=== PATIENT | male | born 1965 | race Caucasian/White ===

== ENCOUNTER 2017-08-21 10:29 | Emergency (ER) | payer BC, SELFPAY ==
[2017-08-21 10:46] VITALS: BP 163/110; PULSE 108; RESP 20; TEMP 39; O2SAT 98; BMI 37.3
[2017-08-21 10:54] LABS: UTC Influenza A Antigen Positive (Negative); UTC Influenza B Antigen Negative (Negative)
[2017-08-21 10:56] LABS: UTC Strep Screen (Rapid) Negative (Negative)
--- NOTE | 2017-08-21 10:59 | HMH.EDUTC ---
[facility] [place] Disposition Clinical Impression: Influenza A Disposition: Home, Self-Care Condition on Discharge: Good Instructions: DI for Influenza -- Adult Additional Instructions: * Start Tamiflu today if you are going to take it. Discussed risks and possible benefits. * Lots of rest * warm salt water gargles * warm fluids * sore throat lozenges * sleep elevated * humidifier/vaporizer * Increase fluids, water, gatorade, powerade, pedialyte if /toddler/child * Monitor Temp. Tylenol every 4 hours as needed no more then 5 times a day or 4000mg in 24 hours and/or ibuprofen every 6 hours as needed no more then 3200mg in 24 hours (as long as your primary care doctor has told you that it is ok to take both) for fever/aches/pain. ER if fever no less than 101 despite tylenol and Ibuprofen * OTC cold/flu/sinus medication is ok but pick one. Do not take multiple different ones as they have similar ingredients and you can overdose on cold medication. Be careful which ones you choose due to your high blood pressure. Coricidin HBP products are typically the safest in those with high blood pressure. * You (or your child) are contagious until no fever, aches, chills x 24 hours without medication for symptoms. * As you requested, I prescribed you cough syrup to help you sleep. Promethazine DM cough syrup will cause drowsiness. Use it only at night. No driving, operating machinery or caring for small children after taking it. This may or may not effect your blood pressure. BE SUrE to monitor (especially once fever gone or improved) and if remains elevated, stop medication and be sure to follow up. Follow up with primary care IMMEDIATELY for new or worsening symptoms, improvement followed by suddenly feeling worse OR no noticeable improvement over the next 48-72 hours. 911 for difficulty breathing Prescriptions: Oseltamivir Phosphate [Tamiflu 75mg Capsule] 75 mg PO BID #10 cap Promethazine/Dextromethorphan [Promethazine-Dm Syrup] 5 ml PO Q6H PRN #240 ml PRN Reason: Cough Time of Disposition: 11:06 Medical Decision Making Vital Signs: 08/21/17 10:46 08/21/17 11:03 Temperature 102.2 F H 102.2 F H Temperature Source Temporal Artery Scan Pulse Rate 108 H Pulse Rate [Right Brachial] 108 H Respiratory Rate 20 20 Blood Pressure 163/110 Blood Pressure [Right Arm] 163/110 Blood Pressure Mean [Right Arm] 127 Blood Pressure Source [Right Arm] Automatic Cuff Blood Pressure Position [Right Arm] Sitting 02 Sat by Pulse Oximetry 98 Oxygen Delivery Method Room Air - Lab Data Lab results reviewed: Yes: I reviewed the patient's lab results. Lab Results 08/21/17 10:53: Influenza Type A Ag Positive A, Influenza Type B Ag Negative, Strep Scn Rapid Clinic Negative Orders (Tests/Meds): ORDERS Category Date Time Status Strep Screen Confirmation Stat Micro 08/21/17 10:53 Received - Liban Inquiry Pt receiving controlled substance: No [facility] [place] HPI - General Stated complaint: COUGH SOA Mode of Arrival: Ambulatory Source of Information: Patient Limitations: No Limitations Description of Symptoms (Recalled from Triage Doc. by RN): c/o fever and cough HEENT Symptoms (Recalled from RN notes): No Resp Symptoms (Recalled from RN notes): Yes (cough) Skin Symptoms (Recalled from RN notes): No MS Symptoms (Recalled from RN notes): No Functional Status (Recalled from RN notes): n/a - History of Present Illness Provider Complaint: c/o dry nonprod cough not too bad x weeks. 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 Started to suddenly feel worse yesterday. More tired as the day progressed and didn't sleep at all last night due to cough. Reports SOA but then describes it more as when he can't stop coughing, not at rest or with activity. No wheezing. Nonsmoker. Robitussin helped take the edge off . Has not had flu vaccine. No known sick contact. 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 - Related D
[2017-08-21 11:03] VITALS: BP 163/110; PULSE 108; RESP 20; TEMP 39; O2SAT 98
--- NOTE | 2017-08-21 11:04 | ED_ITS ---
[facility] [place] Disposition Clinical Impression: Influenza A Disposition: Home, Self-Care Condition on Discharge: Good Instructions: DI for Influenza -- Adult Additional Instructions: * Start Tamiflu today if you are going to take it. Discussed risks and possible benefits. * Lots of rest * warm salt water gargles * warm fluids * sore throat lozenges * sleep elevated * humidifier/vaporizer * Increase fluids, water, gatorade, powerade, pedialyte if /toddler/child * Monitor Temp. Tylenol every 4 hours as needed no more then 5 times a day or 4000mg in 24 hours and/or ibuprofen every 6 hours as needed no more then 3200mg in 24 hours (as long as your primary care doctor has told you that it is ok to take both) for fever/aches/pain. ER if fever no less than 101 despite tylenol and Ibuprofen * OTC cold/flu/sinus medication is ok but pick one. Do not take multiple different ones as they have similar ingredients and you can overdose on cold medication. Be careful which ones you choose due to your high blood pressure. Coricidin HBP products are typically the safest in those with high blood pressure. * You (or your child) are contagious until no fever, aches, chills x 24 hours without medication for symptoms. * As you requested, I prescribed you cough syrup to help you sleep. Promethazine DM cough syrup will cause drowsiness. Use it only at night. No driving, operating machinery or caring for small children after taking it. This may or may not effect your blood pressure. BE SUrE to monitor (especially once fever gone or improved) and if remains elevated, stop medication and be sure to follow up. Follow up with primary care IMMEDIATELY for new or worsening symptoms, improvement followed by suddenly feeling worse OR no noticeable improvement over the next 48-72 hours. 911 for difficulty breathing Prescriptions: Oseltamivir Phosphate [Tamiflu 75mg Capsule] 75 mg PO BID #10 cap Promethazine/Dextromethorphan [Promethazine-Dm Syrup] 5 ml PO Q6H PRN #240 ml PRN Reason: Cough Time of Disposition: 11:06 Medical Decision Making Vital Signs: 08/21/17 10:46 08/21/17 11:03 Temperature 102.2 F H 102.2 F H Temperature Source Temporal Artery Scan Pulse Rate 108 H Pulse Rate [Right Brachial] 108 H Respiratory Rate 20 20 Blood Pressure 163/110 Blood Pressure [Right Arm] 163/110 Blood Pressure Mean [Right Arm] 127 Blood Pressure Source [Right Arm] Automatic Cuff Blood Pressure Position [Right Arm] Sitting 02 Sat by Pulse Oximetry 98 Oxygen Delivery Method Room Air - Lab Data Lab results reviewed: Yes: I reviewed the patient's lab results. Lab Results 08/21/17 10:53: Influenza Type A Ag Positive A, Influenza Type B Ag Negative, Strep Scn Rapid Clinic Negative Orders (Tests/Meds): ORDERS Category Date Time Status Strep Screen Confirmation Stat Micro 08/21/17 10:53 Received - Liban Inquiry Pt receiving controlled substance: No [facility] [place] HPI - General Stated complaint: COUGH SOA Mode of Arrival: Ambulatory Source of Information: Patient Limitations: No Limitations Description of Symptoms (Recalled from Triage Doc. by RN): c/o fever and cough HEENT Symptoms (Recalled from RN notes): No Resp Symptoms (Recalled from RN notes): Yes (cough) Skin Symptoms (Recalled from RN notes): No MS Symptoms (Recalled from RN notes): No Functional Status (Recalled from RN notes): n/a - History of Present Illness Pr
== END 2017-08-21 11:07 | disposition home or self-care (01) ==
PROVIDERS: Emergency Provider Nurse Practitioner Family; Family Provider Internal Medicine Adolescent Medicine
DX: J10.1 Influenza due to other identified influenza virus with other respiratory manifestations (principal); I10 Essential (primary) hypertension
CPT/HCPCS: 87804; 87880; 99202

== ENCOUNTER 2017-09-01 23:36 | Emergency (ER) | payer BC, SELFPAY ==
[2017-09-01 23:40] VITALS: BP 150/75; PULSE 97; RESP 20; TEMP 37.1; O2SAT 96; BMI 36.8
--- NOTE | 2017-09-02 | XR_ITS ---
XR chest 2V HISTORY: ITS.REASON: SOA, BACK PAIN ORDERING PHYSICIAN: Basil Booth MD PATIENT AGE: 52 years COMPARISON: None available FINDINGS: The cardiomediastinal silhouette and pulmonary vascularity are within normal limits. There is a rounded 2.6 cm opacity in the right lung base laterally. This could be related to an area of rounded consolidation, one cannot exclude the possibility of neoplasm. Suggest chest CT with contrast for further evaluation. No effusions or other significant anomalies.. No acute bony abnormalities. IMPRESSION: 2.6 cm rounded opacity right lung base laterally. Recommend chest CT for further evaluation. Differential diagnosis includes neoplasm versus rounded area of pneumonia.
[2017-09-02 00:08] VITALS: BP 106/59
--- NOTE | 2017-09-02 00:20 | PC.NURSE ---
PT TO XRAY AT THIS TIME
--- NOTE | 2017-09-02 00:24 | PC.NURSE ---
PT BACK FROM XRAY
[2017-09-02 00:26] LABS: Basophils # 0.1 K/mm3 (0-0.2); Basophils % 0.6 % (0.1-2.0); Eosinophils # 0.2 K/mm3 (0.0-0.4); Eosinophils % 2.4 % (0.1-12.0); Hematocrit 44.8 % (42.0-52.0); Hemoglobin 14.7 g/dL (14.1-18.0); Lymphocytes # 1.8 K/mm3 (0.7-4.5); Lymphocytes % 22.5 K/mm3 (10-50); Mean Corpuscular HGB Conc 32.8 g/dL (31.8-35.4); Mean Corpuscular Hemoglobin 28.4 pg (27.0-31.2); Mean Corpuscular Volume 86.7 fl (80-94); Monocytes # 0.4 K/mm3 (0.1-1.0); Monocytes % 4.7 % (1.7-9.3); Neutrophils # 5.5 K/mm3 (1.8-7.8); Neutrophils % 69.8 % (37.0-80.0); Platelet Count 146 K/mm3 (142-424); Red Blood Count 5.17 M/mm3 (4.60-6.20); Red Cell Distribution Width 13.2 % (11.5-17.5); White Blood Count 7.9 K/mm3 (4.8-10.8)
[2017-09-02 00:38] LABS: Lactic Acid 1.2 mmol/L (0.4-2.0)
[2017-09-02 00:48] LABS: Alanine Aminotransferase 39 U/L (12-78); Albumin Level 3.2 gm/dL (3.4-5.0); Albumin/Globulin Ratio 0.8 (1.1-1.8); Alkaline Phosphatase 90 U/L (46-116); Anion Gap 12.2 mEq/L (5-15); Aspartate Amino Transferase 24 U/L (15-37); Bilirubin,Total 0.6 mg/dL (0.2-1.0); Blood Urea Nitrogen 15 mg/dL (7-18); CKMB Relative Index 0.4 U/L (0-4.0); Calcium 8.4 mg/dL (8.5-10.1); Carbon Dioxide 29 mmol/L (21.0-32.0); Chloride 101 mmol/L (98-107); Creatine Kinase 118 U/L (39-308); Creatine Kinase MB 0.5 mg/ml (0.0-3.6); Creatinine Clearance Estimated 117 mL/min (0-300); Creatinine,Serum 1.27 mg/dL (0.70-1.30); Estimated Glomerular Filt Rate 59 ml/min (>60); GFR (African American) 72 ML/MIN (>60); Globulin 4.1 gm/dl (1.3-3.2); Glucose 128 mg/dL (74-106); Potassium 4.2 mmoL/L (3.5-5.1); Sodium 138 mmol/L (136-145); Total Protein,Serum 7.3 gm/dL (6.4-8.2); Troponin I < 0.02 ng/ml (0.00-0.06)
[2017-09-02 01:04] VITALS: PULSE 93; PULSE 96
--- NOTE | 2017-09-02 01:21 | HMH.EDGENADL ---
ED Disposition Clinical Impression: Pleurisy CAP (community acquired pneumonia) Qualifiers: Laterality: right Lung location: lower lobe of lung Qualified Code(s): J18.1 - Lobar pneumonia, unspecified organism Disposition: Home, Self-Care Condition on Discharge: Good Instructions: DI for Pleurisy Additional Instructions: use meds and see pcp for follow up Prescriptions: predniSONE [Prednisone 20mg Tab] 20 mg PO DAILY #10 tab - Critical Care Critical Care Time: No Attestation: On 09/01/17, the high probability of a clinically significant, sudden or life threatening deterioration of the following system(s) required my full and direct attention, intervention and personal management. The time I documented below is in addition to time spent performing reported procedures but includes the following listed in this critical care notation. Medical Decision Making - Medical Records Medical records reviewed: Yes: I reviewed the patient's medical records. Vital Signs: 09/01/17 23:40 09/02/17 00:08 09/02/17 01:04 Temperature 98.7 F Temperature Source Oral Pulse Rate 93 H Pulse Rate [Right Brachial] 97 H Respiratory Rate 20 Blood Pressure [Right Arm] 150/75 106/59 Blood Pressure Mean [Right Arm] 100 74 Blood Pressure Source [Right Arm] Automatic Cuff Automatic Cuff Blood Pressure Position [Right Arm] Sitting Supine 02 Sat by Pulse Oximetry 96 Oxygen Delivery Method Room Air - Lab Data Lab results reviewed: Yes: I reviewed the patient's lab results. Lab Results 09/02/17 00:15: WBC 7.9, RBC 5.17, Hgb 14.7, Hct 44.8, MCV 86.7, MCH 28.4, MCHC 32.8, RDW 13.2, Plt Count 146, MPV 9.0, Neut % (Auto) 69.8, Lymph % (Auto) 22.5, Walsh % (Auto) 4.7, Eos % (Auto) 2.4, Baso % (Auto) 0.6, Neut # (Auto) 5.5, Lymph # (Auto) 1.8, Walsh # (Auto) 0.4, Eos # (Auto) 0.2, Baso # (Auto) 0.1 09/02/17 00:15: Sodium 138, Potassium 4.2, Chloride 101, Carbon Dioxide 29, Anion Gap 12.2, BUN 15, Creatinine 1.27, Estimated Creat Clear 117, Estimated GFR 59, Est GFR ( Amer) 72, Glucose 128 H, Calcium 8.4 L, Total Bilirubin 0.6, AST 24, ALT 39, Alkaline Phosphatase 90, Total Creatine Kinase 118, CK-MB (CK-2) 0.5, CK-MB (CK-2) Rel Index 0.4, Troponin I < 0.02, Total Protein 7.3, Albumin 3.2 L, Globulin 4.1 H, Albumin/Globulin Ratio 0.8 L 09/02/17 00:15: Lactic Acid 1.2 Result diagrams: 09/02/17 00:15 09/02/17 00:15 Orders (Tests/Meds): ED MEDICATIONS Generic Name Dose Route Start Last Admin Trade Name Freq PRN Reason Stop Dose Admin Albuterol Sulfate 2 puffs 09/02/17 01:49 Proventil-Hfa 90mcg/Puff Inhaler 10/02/17 01:48 Q6HP PRN Shortness Of Breath Discontinued Medications Generic Name Dose Route Start Last Admin Trade Name Freq PRN Reason Stop Dose Admin Albuterol/Ipratropium 3 ml 09/02/17 00:49 09/02/17 01:01 Duoneb 3ml Neb IH 09/02/17 00:50 3 ml ONCE ONE Administration Methylprednisolone Sodium Succinate 125 mg 09/02/17 01:49 Solu-Medrol 125mg/2ml Vial IV 09/02/17 01:50 ONCE ONE Miscellaneous 1 unit 09/02/17 01:49 Aerochamber/Optihaler MC 09/02/17 01:50 ONCE ONE ORDERS Category Date Time Status XR chest 2V Stat Exams 09/02/17 00:00 Taken Blood Culture Stat Micro 09/02/17 00:15 Received ECG Request by /Ashely Stat Y 09/01/17 23:54 Ordered - Radiology Data #1 Image(s): Chest Image Reviewed: Yes I reviewed the patient's radiology image Preliminary Findings: Abnormal - ECG Data Tracing #1 I reviewed this ECG and interpreted as documented below: Arrhythmias present: sinus tach Ischemic changes: non-specific ST-T wave changes - Liban Inquiry Pt receiving controlled substance: No General Adult HPI - General Chief complaint: PAIN Stated complaint: SOA Pain in middle of back Time Seen by Provider: 09/02/17 01:21 Mode of Arrival: Family Vehicle Source of Information: Patient, Significant Other, Me
--- NOTE | 2017-09-02 01:26 | ED_ITS ---
ED Disposition Clinical Impression: Pleurisy CAP (community acquired pneumonia) Qualifiers: Laterality: right Lung location: lower lobe of lung Qualified Code(s): J18.1 - Lobar pneumonia, unspecified organism Disposition: Home, Self-Care Condition on Discharge: Good Instructions: DI for Pleurisy Additional Instructions: use meds and see pcp for follow up Prescriptions: predniSONE [Prednisone 20mg Tab] 20 mg PO DAILY #10 tab - Critical Care Critical Care Time: No Attestation: On 09/01/17, the high probability of a clinically significant, sudden or life threatening deterioration of the following system(s) required my full and direct attention, intervention and personal management. The time I documented below is in addition to time spent performing reported procedures but includes the following listed in this critical care notation. Medical Decision Making - Medical Records Medical records reviewed: Yes: I reviewed the patient's medical records. Vital Signs: 09/01/17 23:40 09/02/17 00:08 09/02/17 01:04 Temperature 98.7 F Temperature Source Oral Pulse Rate 93 H Pulse Rate [Right Brachial] 97 H Respiratory Rate 20 Blood Pressure [Right Arm] 150/75 106/59 Blood Pressure Mean [Right Arm] 100 74 Blood Pressure Source [Right Arm] Automatic Cuff Automatic Cuff Blood Pressure Position [Right Arm] Sitting Supine 02 Sat by Pulse Oximetry 96 Oxygen Delivery Method Room Air - Lab Data Lab results reviewed: Yes: I reviewed the patient's lab results. Lab Results 09/02/17 00:15: WBC 7.9, RBC 5.17, Hgb 14.7, Hct 44.8, MCV 86.7, MCH 28.4, MCHC 32.8, RDW 13.2, Plt Count 146, MPV 9.0, Neut % (Auto) 69.8, Lymph % (Auto) 22.5 , Josephine % (Auto) 4.7, Eos % (Auto) 2.4, Baso % (Auto) 0.6, Neut # (Auto) 5.5, Lymph # (Auto) 1.8, Josephine # (Auto) 0.4, Eos # (Auto) 0.2, Baso # (Auto) 0.1 09/02/17 00:15: Sodium 138, Potassium 4.2, Chloride 101, Carbon Dioxide 29, Anion Gap 12.2, BUN 15, Creatinine 1.27, Estimated Creat Clear 117, Estimated GFR 59, Est GFR ( Amer) 72, Glucose 128 H, Calcium 8.4 L, Total Bilirubin 0.6, AST 24, ALT 39, Alkaline Phosphatase 90, Total Creatine Kinase 118, CK-MB (CK-2) 0.5, CK-MB (CK-2) Rel Index 0.4, Troponin I < 0.02, Total Protein 7.3, Albumin 3.2 L, Globulin 4.1 H, Albumin/Globulin Ratio 0.8 L 09/02/17 00:15: Lactic Acid 1.2 Result diagrams: 09/02/17 00:15 09/02/17 00:15 Orders (Tests/Meds): ED MEDICATIONS Generic Name Dose Route Start Last Admin Trade Name Freq PRN Reason Stop Dose Admin Albuterol Sulfate 2 puffs 09/02/17 01:49 Proventil-Hfa 90mcg/Puff Inhaler 10/02/17 01:48 Q6HP PRN Shortness Of Breath Discontinued Medications Generic Name Dose Route Start Last Admin Trade Name Freq PRN Reason Stop Dose Admin Albuterol/Ipratropium 3 ml 09/02/17 00:49 09/02/17 01:01 Duoneb 3ml Neb IH 09/02/17 00:50 3 ml ONCE ONE Administration Methylprednisolone Sodium Succinate 125 mg 09/02/17 01:49 Solu-Medrol 125mg/2ml Vial IV 09/02/17 01:50 ONCE ONE Miscellaneous 1 unit 09/02/17 01:49 Aerochamber/Optihaler MC 09/02/17 01:50 ONCE ONE ORDERS Category Date Time Status XR chest 2V Stat Exams 09/02/17 00:00 Taken Blood Culture Stat Micro
[2017-09-02 02:13] VITALS: BP 157/59; PULSE 97; RESP 20; O2SAT 97
== END 2017-09-02 02:15 | disposition home or self-care (01) ==
PROVIDERS: Emergency Provider Emergency Medicine; Family Provider Internal Medicine Adolescent Medicine
DX: J18.1 Lobar pneumonia, unspecified organism (principal); R09.1 Pleurisy; E78.5 Hyperlipidemia, unspecified; I10 Essential (primary) hypertension; Z97.13 Presence of artificial right leg (complete) (partial)
CPT/HCPCS: 71046; 80053; 82550; 82553; 83605; 84484; 85025; 87040; 93005; 93041; 96374; 99284

== ENCOUNTER 2017-09-18 16:45 | Emergency (ER) | payer BC, SELFPAY ==
--- NOTE | 2017-09-18 17:23 | XR_ITS ---
XR chest 2V HISTORY: ITS.REASON: COUGH ORDERING PHYSICIAN: Kelly Velásquez PATIENT AGE: 52 years COMPARISON: None available FINDINGS: The cardiomediastinal silhouette and pulmonary vascularity are within normal limits. There is coarsening of bronchovascular markings. There remains an area of increased density in the right lung base laterally which may be somewhat less apparent. This however could be related to the projection and technique. CT suggested for further evaluation. Mild bronchial thickening. Degenerative changes are present in the thoracic spine. IMPRESSION: 1. Persistent opacity in right lung base laterally for which CT is suggested. Infiltrate or developing nodule is a consideration. 2. Bronchitis/bronchiolitis
[2017-09-18 17:25] VITALS: BP 134/75; PULSE 101; RESP 20; TEMP 36.3; O2SAT 96; BMI 37.3
--- NOTE | 2017-09-18 18:00 | HMH.EDUTC ---
[facility] [place] Disposition Clinical Impression: Lung infiltrate Disposition: Home, Self-Care Condition on Discharge: Good Instructions: Pneumonia-Adult, DI for Pneumonia -- Adult Additional Instructions: Take medication as prescribed Call Family doctor tomorrow for appointment Return if needed If you began to have trouble breathing or worsening of symptoms go straight to ER Prescriptions: Albuterol Sulfate [Albuterol HFA Inhaler] 2 puffs IH Q6HP PRN #1 inh PRN Reason: Shortness Of Breath Or Wheezing Azithromycin [Z-James 250mg Tab] 250 mg PO UD DOSE PK #6 tab Benzonatate [Tessalon Perle 100mg Cap] 100 mg PO TID PRN #30 cap PRN Reason: Cough predniSONE [Prednisone 20mg Tab] 20 mg PO BID #10 tab Referrals: Harvey Gannon MD [Primary Care Provider] - Time of Disposition: 18:43 Medical Decision Making - Medical Records Medical records reviewed: Yes: I reviewed the patient's medical records. Vital Signs: 09/18/17 17:25 Temperature 97.3 F L Temperature Source Temporal Artery Scan Pulse Rate [Left Brachial] 101 H Respiratory Rate 20 Blood Pressure [Left Arm] 134/75 Blood Pressure Mean [Left Arm] 94 Blood Pressure Source [Left Arm] Automatic Cuff Blood Pressure Position [Left Arm] Sitting 02 Sat by Pulse Oximetry 96 Oxygen Delivery Method Room Air - Lab Data Lab Results 09/18/17 17:23: Influenza Type A Ag Negative, Influenza Type B Ag Negative - Radiology Data #1 Image Reviewed: Yes I have reviewed radiologist's interpretation Persistent opacity in right lung base laterally, ?infiltrate, 2 Bronchitis/bronchiolitis - Liban Inquiry Pt receiving controlled substance: No Liban was queried for this patient: No [facility] [place] HPI - General Stated complaint: fever, soa, cough Mode of Arrival: Ambulatory Source of Information: Patient Limitations: No Limitations Description of Symptoms (Recalled from Triage Doc. by RN): FEVER, COUGH, CHEST CONGESTION HEENT Symptoms (Recalled from RN notes): No Resp Symptoms (Recalled from RN notes): Yes (COUGH, CHEST CONGESTION) Skin Symptoms (Recalled from RN notes): No MS Symptoms (Recalled from RN notes): No Functional Status (Recalled from RN notes): N/A - History of Present Illness Provider Complaint: Patient state that he recently had the flu and was recently seen and treated for lung infection States that on he began to have the cough and feeling like he was getting sick again State that he was worried that he may have the flu again so he came in to get checked out - Related Data Home Medications Medication Instructions Recorded Confirmed Benzonatate [Tessalon Perle 100mg 100 mg PO TID 09/01/17 09/01/17 Cap] Doxycycline Monohydrate [Monodox] 100 mg PO BID 09/01/17 09/01/17 Metoprolol Succinate [Toprol XL 25 mg PO DAILY 09/01/17 09/01/17 25mg tablet] Pravastatin Sodium [Pravachol] 40 mg PO HS 09/01/17 09/01/17 Previous Rx's Medication Instructions Recorded Promethazine/Dextromethorphan 5 ml PO Q6H PRN #240 ml 08/21/17 [Promethazine-Dm Syrup] predniSONE [Prednisone 20mg 20 mg PO DAILY #10 tab 09/02/17 Tab] Albuterol Sulfate [Albuterol HFA 2 puffs IH Q6HP PRN #1 inh 09/18/17 Inhaler] Azithromycin [Z-James 250mg Tab] 250 mg PO UD DOSE PK #6 tab 09/18/17 Benzonatate [Tessalon Perle 100mg 100 mg PO TID PRN #30 cap 09/18/17 Cap] predniSONE [Prednisone 20mg 20 mg PO BID #10 tab 09/18/17 Tab] Allergies Allergy/AdvReac Type Severity Reaction Status Date / Time No Known Allergies Allergy Verified 08/21/17 10:56 - Worker's Comp Is this a Worker's Comp case?: No [facility] History I have reviewed the patient's past medical history: Yes Medical History: Reports:: Hyperlipidemia, Hypertension Denies:: Cancer, Coronary Artery Disease, Diabetes Mellitus Type 1, Diabetes Mellitus Type 2, MRSA Laterality Cases: Left: Other, Right: Total Knee Replacement Other Surgeries: Yes: Other (wisdom teeth extracton) A
[2017-09-18 18:06] LABS: UTC Influenza A Antigen Negative (Negative); UTC Influenza B Antigen Negative (Negative)
--- NOTE | 2017-09-18 18:14 | ED_ITS ---
[facility] – [place] Disposition Clinical Impression: Lung infiltrate Disposition: Home, Self-Care Condition on Discharge: Good Instructions: Pneumonia-Adult, DI for Pneumonia -- Adult Additional Instructions: Take medication as prescribed Call Family doctor tomorrow for appointment Return if needed If you began to have trouble breathing or worsening of symptoms go straight to ER Prescriptions: Albuterol Sulfate [Albuterol HFA Inhaler] 2 puffs IH Q6HP PRN #1 inh PRN Reason: Shortness Of Breath Or Wheezing Azithromycin [Z-James 250mg Tab] 250 mg PO UD DOSE PK #6 tab Benzonatate [Tessalon Perle 100mg Cap] 100 mg PO TID PRN #30 cap PRN Reason: Cough predniSONE [Prednisone 20mg Tab] 20 mg PO BID #10 tab Referrals: Harvey Gannon MD [Primary Care Provider] - Time of Disposition: 18:43 Medical Decision Making - Medical Records Medical records reviewed: Yes: I reviewed the patient's medical records. Vital Signs: 09/18/17 17:25 Temperature 97.3 F L Temperature Source Temporal Artery Scan Pulse Rate [Left Brachial] 101 H Respiratory Rate 20 Blood Pressure [Left Arm] 134/75 Blood Pressure Mean [Left Arm] 94 Blood Pressure Source [Left Arm] Automatic Cuff Blood Pressure Position [Left Arm] Sitting 02 Sat by Pulse Oximetry 96 Oxygen Delivery Method Room Air - Lab Data Lab Results 09/18/17 17:23: Influenza Type A Ag Negative, Influenza Type B Ag Negative - Radiology Data #1 Image Reviewed: Yes I have reviewed radiologist's interpretation Persistent opacity in right lung base laterally, ?infiltrate, 2 Bronchitis/ bronchiolitis - Liban Inquiry Pt receiving controlled substance: No Liban was queried for this patient: No [facility] [place] HPI - General Stated complaint: fever, soa, cough Mode of Arrival: Ambulatory Source of Information: Patient Limitations: No Limitations Description of Symptoms (Recalled from Triage Doc. by RN): FEVER, COUGH, CHEST CONGESTION HEENT Symptoms (Recalled from RN notes): No Resp Symptoms (Recalled from RN notes): Yes (COUGH, CHEST CONGESTION) Skin Symptoms (Recalled from RN notes): No MS Symptoms (Recalled from RN notes): No Functional Status (Recalled from RN notes): N/A - History of Present Illness Provider Complaint: Patient state that he recently had the flu and was recently seen and treated for lung infection States that on he began to have the cough and feeling like he was getting sick again State that he was worried that he may have the flu again so he came in to get checked out - Related Data Home Medications Medication Instructions Recorded Confirmed Benzonatate [Tessalon Perle 100mg 100 mg PO TID 09/01/17 09/01/17 Cap] Doxycycline Monohydrate [Monodox] 100 mg PO BID 09/01/17 09/01/17 Metoprolol Succinate [Toprol XL 25 mg PO DAILY 09/01/17 09/01/17 25mg tablet] Pravastatin Sodium [Pravachol] 40 mg PO HS 09/01/17 09/01/17 Previous Rx's Medication Instructions Recorded Promethazine/Dextromethorphan 5 ml PO Q6H PRN #240 ml 08/21/17 [Promethazine-Dm Syrup] predniSONE [Prednisone 20mg 20 mg PO DAILY #10 tab 09/02/17 Tab] Albuterol Sulfate [Albuterol HFA 2 puffs IH Q6HP PRN #1 inh 09/18/17 Inhaler] Azithromycin [Z-James 250mg Tab] 250 mg PO UD DOSE PK #6 tab 09/18/17 Benzonatate [Tessalon Perle 100mg 100 mg
[2017-09-18 18:54] VITALS: BP 134/75; PULSE 101; RESP 20; TEMP 36.3; O2SAT 96
== END 2017-09-18 18:55 | disposition home or self-care (01) ==
PROVIDERS: Emergency Provider Nurse Practitioner; Family Provider Internal Medicine Adolescent Medicine; PCP Internal Medicine Adolescent Medicine
DX: J18.9 Pneumonia, unspecified organism (principal); E78.5 Hyperlipidemia, unspecified; I10 Essential (primary) hypertension
CPT/HCPCS: 71046; 87804; 99202

== ENCOUNTER → 2017-09-28 08:39 | Outpatient (CLI) | payer BC, SELFPAY ==
--- NOTE | 2017-09-28 08:51 | CT_ITS ---
CT chest w con HISTORY: Shortness of air, follow-up abnormal chest x-ray. Right lower lobe nodule, solitary pulmonary nodule. ITS.REASON: PULMONARY NODULE ORDERING PHYSICIAN: Harvey Gannon MD PATIENT AGE: 52 years TECHNIQUE: Axial images obtained following the administration of 75 mL of Isovue 370 . Sagittal, and coronal reformatted images are also generated and reviewed. COMPARISON: Radiograph of 09/18/2017 FINDINGS: There is a moderate sized pulmonary embolus within the distal aspect of the left main pulmonary artery extending into the proximal aspect of the upper and lower pulmonary artery branches. Smaller pulmonary emboli are present at the distal right main pulmonary artery and extending into the proximal portion of the descending branch of the right pulmonary artery. No evidence of aortic aneurysm or dissection. No mediastinal or hilar adenopathy or mass. Normal heart size. There is a peripheral nodular opacity in the right lower lobe measuring 2 cm corresponding to the radiographic abnormality. There is some decreased attenuation within the central aspect of this nodule. The nodule is well-circumscribed with some minimal irregularity of the peripheral aspect of the nodule. There is a 3.6 x 1.9 cm opacity in the left lung base also containing some low-density changes centrally somewhat similar to the nodule in the right lower lobe. No effusions. Patchy density is present in the left upper lobe anteriorly and laterally consistent with an area of infiltrate. Nodular opacity is present in the posterior aspect of the left upper lobe and 9 mm. With a satellite nodule adjacent to this laterally at 5 mm. No effusions. Upper abdominal images are unremarkable. No acute bony anomalies. IMPRESSION: 1. Bilateral pulmonary emboli described above. 2. Radiographic abnormality of the right lower lobe corresponds to a 2 cm nodule in the right lower lobe. There is an additional oval 3.6 x 1.9 cm nodule/mass in the left lung base. Both of these nodular areas contain decreased attenuation centrally having a somewhat bubbly consolidation which could be due to pulmonary infarction from the pulmonary emboli. Differential diagnosis would include septic pulmonary emboli or cavitating neoplasm. Recommend follow-up to confirm resolution. 3. 9 and 5 mm nodular opacity left upper lobe nonspecific. Long-term follow-up recommended to confirm stability.
--- NOTE | 2017-09-28 09:17 | HMH.ITSHM ---
PRAVASTATIN,METOPROLOL
--- NOTE | 2017-09-28 12:28 | NVE_ITS ---
Venous Exam Indications: 729.5 Pain in limb. 782.3 Edema. IMPRESSIONS Moderate, acute deep vein thrombosis involving the right femoral vein and right popliteal vein History: Right lower extremity pain. Edema of the right leg. PMH: Pulmonary embolus. Patient was diagnosed with PE this morning 09/28/17. Edema noted in right lower extremity x several weeks per patient. Risk factors: Hypertension. Right lower extremity venous duplex evaluation. Doppler flow study including spectral analysis, color and shetty scale imaging. Location: Vascular laboratory. Patient status: Outpatient. CRITICAL FINDINGS - Reported to: NIC Bocanegra - Read back and verified. - 09/28/17 - 15:55 - RLE DVT in SFV, POPV Tables: Venous flow and imaging: + + + + Location Overall Flow properties + + + + Right common femoral Patent Normal phasicity; spontaneous; normal augmentation; compressible + + + + Right saphenofemoral Totally occluded Noncompressible junction + + + + Right profunda femoral Totally occluded Noncompressible + + + + Right femoral Totally occluded Noncompressible + + + + Right greater saphenous Patent Normal phasicity; spontaneous; normal augmentation; compressible + + + + Right popliteal Totally occluded Noncompressible + + + + Right posterior tibial Patent Compressible + + + + Right peroneal Patent Compressible + + + + Right gastrocnemius Patent Compressible + + + + Right soleal Patent Compressible + + + + (Report amended ) Electronically signed by: Walter Pires [id number]
[2017-09-28 15:40] LABS: Basophils % 0.5 % (0.1-2.0); Eosinophils # 0.2 K/mm3 (0.0-0.4); Eosinophils % 3.5 % (0.1-12.0); Hematocrit 46.3 % (42.0-52.0); Hemoglobin 15.1 g/dL (14.1-18.0); Lymphocytes # 2.3 K/mm3 (0.7-4.5); Lymphocytes % 36.5 K/mm3 (10-50); Mean Corpuscular HGB Conc 32.6 g/dL (31.8-35.4); Mean Corpuscular Hemoglobin 28.1 pg (27.0-31.2); Mean Corpuscular Volume 86.4 fl (80-94); Mean Platelet Volume 8.2 fl (7.4-10.4); Monocytes # 0.3 K/mm3 (0.1-1.0); Monocytes % 5.3 % (1.7-9.3); Neutrophils # 3.4 K/mm3 (1.8-7.8); Neutrophils % 54.2 % (37.0-80.0); Platelet Count 178 K/mm3 (142-424); Red Blood Count 5.36 M/mm3 (4.60-6.20); Red Cell Distribution Width 13.6 % (11.5-17.5); White Blood Count 6.2 K/mm3 (4.8-10.8)
[2017-09-28 15:45] LABS: Activated Partial Thrombo Time 24.7 seconds (23.6-34.0); INR 0.93 (0.9-1.1)
[2017-09-28 16:16] LABS: D-Dimer 3440 (0-400)
[2017-09-28 17:11] LABS: Alanine Aminotransferase 33 U/L (12-78); Albumin Level 3.3 gm/dL (3.4-5.0); Albumin/Globulin Ratio 0.9 (1.1-1.8); Alkaline Phosphatase 84 U/L (46-116); Anion Gap 11.2 mEq/L (5-15); Aspartate Amino Transferase 13 U/L (15-37); Bilirubin,Total 0.2 mg/dL (0.2-1.0); Blood Urea Nitrogen 16 mg/dL (7-18); Calcium 8.5 mg/dL (8.5-10.1); Carbon Dioxide 28 mmol/L (21.0-32.0); Chloride 104 mmol/L (98-107); Creatinine,Serum 1.14 mg/dL (0.70-1.30); Estimated Glomerular Filt Rate 67 ml/min (>60); GFR (African American) 81 ML/MIN (>60); Globulin 3.5 gm/dl (1.3-3.2); Glucose 79 mg/dL (74-106); Potassium 4.2 mmoL/L (3.5-5.1); Sodium 139 mmol/L (136-145); Thyroid Stimulating Hormone 1.64 uIU/ml (0.358-3.740); Total Protein,Serum 6.8 gm/dL (6.4-8.2)
[2017-10-01 18:00] LABS: Anti-Thrombin III Antigen 85 % (72-124); Protein S Antigen, Total 98 % (60-150); Protein S, Free 131 % (57-157)
[2017-10-04 06:28] LABS: Protein C Antigen 105 % (60-150)
== END ==
PROVIDERS: Nurse Practitioner Family; Family Provider Internal Medicine Adolescent Medicine; PCP Internal Medicine Adolescent Medicine; Visit Provider Internal Medicine Adolescent Medicine
DX: R91.1 Solitary pulmonary nodule (principal); I26.99 Other pulmonary embolism without acute cor pulmonale; R91.8 Other nonspecific abnormal finding of lung field; R60.0 Localized edema
CPT/HCPCS: 36415; 71260; 80053; 81241; 84443; 85025; 85301; 85302; 85305; 85378; 85610; 85730; 93971; Q9967

== ENCOUNTER → 2017-09-30 09:32 | Outpatient (POV) | payer BC, SELFPAY | PROVIDERS: Visit Provider Thoracic Surgery (Cardiothoracic Vascular Surgery) | DX: Z00.00 Encounter for general adult medical examination without abnormal findings (principal) ==

== ENCOUNTER → 2018-01-05 09:14 | Outpatient (CLI) | payer BC, SELFPAY ==
--- NOTE | 2018-01-05 09:41 | CT_ITS ---
CT chest wo/w con HISTORY: Follow-up lung nodule/pulmonary emboli ITS.REASON: LUNG NODULE ORDERING PHYSICIAN: Davidson Paez MD PATIENT AGE: 52 years COMPARISON: 09/28/2017 Technique: Axial images obtained without and with contrast. 75 mL Isovue-370 utilized.. Sagittal and coronal reformatted images are also generated and reviewed. All CT scans at the facility use one or more dose reduction, viz: automated exposure control; ma/kV adjustment per patient size (including targeted exams where dose is matched to indication; i.e. head); or iterative reconstruction technique. FINDINGS: The previously noted extensive pulmonary emboli has improved. The thrombus within the bifurcation of the left main pulmonary artery has improved with only minimal residual noted. No mediastinal or hilar mass or adenopathy is evident. The unenhanced images demonstrates coronary artery calcification. There are calcified hilar and mediastinal lymph nodes. No enhancing lesions are evident. The previously noted peripheral parenchymal opacity in the right middle lobe has shown improvement now only represented by a bandlike area of increased density. The oblong parenchymal opacity in the left lung base posteriorly has also decreased in size with some minimal residual density in this area measuring approximately 20 x 8 mm compared to 36 x 18 mm. The infiltrate in the left upper lobe has improved. Subpleural parenchymal opacity in the left upper lobe posteriorly has decreased in prominence. No new nodules or infiltrates are evident. No acute bony anomalies. Upper abdominal images are unremarkable. IMPRESSION: 1. Interval decrease in thrombus burden of the pulmonary emboli with only minimal residual filling defect in the application of the left main pulmonary artery. 2. Previously described bilateral parenchymal opacities have also decreased in prominence and either representing pulmonary infarction or areas of pneumonia which have improved. There remains some parenchymal opacity in left lung base posteriorly. Consider 6 month follow-up to confirm further resolution for this 2 cm opacity
--- NOTE | 2018-01-05 10:12 | HMH.ITSHM ---
PRAVASTATIN,METOPROLOL
== END ==
PROVIDERS: Family Provider Internal Medicine Adolescent Medicine; PCP Internal Medicine Adolescent Medicine; Visit Provider Thoracic Surgery (Cardiothoracic Vascular Surgery)
DX: R91.1 Solitary pulmonary nodule (principal)
CPT/HCPCS: 71270; Q9967

== ENCOUNTER → 2019-05-30 07:07 | Outpatient (CLI) | payer BC, SELFPAY ==
[2019-05-30 13:48] LABS: Alanine Aminotransferase 24 U/L (12-78); Albumin Level 3.5 gm/dL (3.4-5.0); Albumin/Globulin Ratio 1.1 (1.1-1.8); Alkaline Phosphatase 67 U/L (46-116); Aspartate Amino Transferase 13 U/L (15-37); Bilirubin,Total 0.3 mg/dL (0.2-1.0); Blood Urea Nitrogen 15 mg/dL (7-18); Calcium 8.8 mg/dL (8.5-10.1); Carbon Dioxide 25 mmol/L (21.0-32.0); Chol/HDL Ratio 4.4 (1-3.5); Cholesterol 179 mg/dL (140-200); Creatinine,Serum 1.19 mg/dL (0.70-1.30); Estimated Glomerular Filt Rate 63 ml/min (>60); GFR (African American) 77 ML/MIN (>60); Globulin 3.1 gm/dl (1.3-3.2); Glucose 95 mg/dL (74-106); HDL Cholesterol 41 mg/dL (27-67); LDL Cholesterol 105 mg/dL (0-130); Total Protein,Serum 6.6 gm/dL (6.4-8.2); Triglycerides 163 mg/dL (30-200); VLDL Cholesterol 33 mg/dL (0-40)
[2019-05-30 14:30] LABS: Anion Gap 12.2 mEq/L (5-15); Chloride 105 mmol/L (98-107); Potassium 4.2 mmoL/L (3.5-5.1); Sodium 138 mmol/L (136-145)
== END ==
PROVIDERS: PCP Internal Medicine Adolescent Medicine; Visit Provider Internal Medicine Adolescent Medicine
DX: E78.5 Hyperlipidemia, unspecified (principal); I10 Essential (primary) hypertension
CPT/HCPCS: 36415; 80053; 80061

== ENCOUNTER 2020-05-03 11:41 | Emergency (ER) | payer BC, SELFPAY ==
[2020-05-03 12:01] VITALS: BP 141/84; PULSE 89; RESP 21; TEMP 37.2; O2SAT 98; BMI 37.3
[2020-05-03 12:16] VITALS: BP 141/84; PULSE 89; RESP 21; TEMP 37.2; O2SAT 98
--- NOTE | 2020-05-03 12:18 | HMH.EDUTC ---
[facility] [place] Impression: Sting, wasp Qualifiers: Encounter type: initial encounter Injury intent: accidental or unintentional Qualified Code(s): T63.461A - Toxic effect of venom of wasps, accidental (unintentional), initial encounter Disposition: Home, Self-Care Condition on Discharge: Good Instructions: Insect Bites and Stings Additional Instructions: Try to avoid contact with the offending substance. Don't start the oral steroids until tomorrow. Follow up with your regular doctor. GO TO THE ER FOR ANY WORSENING SYMPTOMS OR CONCERNS Prescriptions: methylPREDNISolone [Medrol] 4 mg PO DIRECTED 6 Days #21 tab.ds.pk Transmission Status: Received by [facility] Referrals: Harvey Gannon MD [Primary Care Provider] - Time of Disposition: 12:34 Medical Decision Making - Medical Records Medical records reviewed: No: I reviewed the patient's medical records. - Liban Inquiry Pt receiving controlled substance: No Vital Signs: 05/03/20 12:01 05/03/20 12:16 Temperature 99.0 F 99.0 F Temperature Source Oral Pulse Rate 89 Pulse Rate [Right Brachial] 89 Respiratory Rate 21 21 Blood Pressure 141/84 H Blood Pressure [Right Arm] 141/84 H Blood Pressure Mean [Right Arm] 103 Blood Pressure Source [Right Arm] Automatic Cuff Blood Pressure Position [Right Arm] Sitting 02 Sat by Pulse Oximetry 98 Oxygen Delivery Method Room Air Orders (Tests/Meds): ED MEDICATIONS Discontinued Medications Generic Name Dose Route Start Last Admin Trade Name Freq PRN Reason Stop Dose Admin Methylprednisolone Sodium Succinate 125 mg 05/03/20 12:09 05/03/20 12:13 Solu-Medrol 125mg/2ml Vial IM 05/03/20 12:10 125 mg ONCE ONE Administration [facility] [place] - General Stated complaint: bee sting Time Seen by Provider: 05/03/20 12:05 Mode of Arrival: Ambulatory Source of Information: Patient Limitations: No Limitations Description of Symptoms (Recalled from Triage Doc. 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 SWELLING NOTED TO AREAS. DENIES ANY DIFFICULTY BREATHING HEENT Symptoms (Recalled from RN notes): No Resp Symptoms (Recalled from RN notes): No Skin Symptoms (Recalled from RN notes): Yes MS Symptoms (Recalled from RN notes): No Functional Status (Recalled from RN notes): WNL - History of Present Illness Provider Complaint: He states that he was stung by a wasp on his face and the back of his neck. This happened right before he came in today. He came in because in the past he has had facial swelling after bee stings. - Related Data Home Medications Medication Instructions Recorded Confirmed Metoprolol Succinate [Toprol XL 25 mg PO DAILY 09/01/17 05/03/20 25mg tablet] Pravastatin Sodium [Pravachol] 40 mg PO HS 09/01/17 05/03/20 Previous Rx's Medication Instructions Recorded methylPREDNISolone [Medrol] 4 mg PO DIRECTED 6 Days #21 05/03/20 tab.ds.pk Allergies Allergy/AdvReac Type Severity Reaction Status Date / Time No Known Allergies Allergy Verified 08/21/17 10:56 - Worker's Comp Is this a Worker's Comp case?: No [facility] History - Hepatitis A Screen Drug use history?: No High risk sexual behaviors?: No History of sexually transmitted infection?: No Currently employed?: No Childcare worker?: No Do you have indoor plumbing?: Yes Do you have electricity?: Yes Attestation statement:: This patient has been screened for Hepatitis A risk factors. I have reviewed the patient's past medical history: Yes Medical History: Reports:: Hyperlipidemia, Hypertension Denies:: Cancer, Coronary Artery Disease, Diabetes Mellitus Type 1, Diabetes Mellitus Type 2, MRSA Laterality Cases: Left: Other, Bilateral: Arthroscopy Knee Other Surgeries: Yes: Other (wisdom teeth extracton) Amputation: No Fractures: No - Social History Smoking Status: Never smoker Alcoh
== END 2020-05-03 12:30 | disposition home or self-care (01) ==
PROVIDERS: Emergency Provider Nurse Practitioner Family; PCP Internal Medicine Adolescent Medicine
DX: T63.461A Toxic effect of venom of wasps, accidental (unintentional), initial encounter (principal); I10 Essential (primary) hypertension; E78.5 Hyperlipidemia, unspecified; Z79.899 Other long term (current) drug therapy
CPT/HCPCS: 96372; 99201

== ENCOUNTER → 2020-11-17 07:11 | Outpatient (CLI) | payer BC, SELFPAY ==
[2020-11-17 14:03] LABS: Chloride 108 mmol/L (98-107); Potassium 4.7 mmoL/L (3.5-5.1); Sodium 137 mmol/L (136-145)
[2020-11-17 14:05] LABS: Blood Urea Nitrogen 16 mg/dl (9-20); Estimated Glomerular Filt Rate 63 ml/min (>60); GFR (African American) 76 ML/MIN (>60)
[2020-11-17 14:06] LABS: Alanine Aminotransferase 24 U/L (12-78); Albumin Level 3.9 g/dl (3.5-5.0); Albumin/Globulin Ratio 1.4 (1.1-1.8); Alkaline Phosphatase 66 U/L (38-126); Anion Gap 9.7 mEq/L (5-15); Aspartate Amino Transferase 25 U/L (17-59); Bilirubin,Total 0.4 mg/dl (0.2-1.3); Calcium 9.1 mg/dl (8.4-10.2); Carbon Dioxide 24 mmol/L (22.0-30.0); Chol/HDL Ratio 4.3 (1-3.5); Cholesterol 177 mg/dl (140-200); Globulin 2.7 g/dL (1.3-3.2); Glucose 102 mg/dl (74-100); HDL Cholesterol 41 mg/dl (40-60); Total Protein,Serum 6.6 g/dl (6.3-8.2); Triglycerides 162 mg/dl (30-150); VLDL Cholesterol 32 mg/dL (0-40)
[2020-11-17 14:17] LABS: Direct LDL Cholesterol 109.36 mg/dL (100-129)
== END ==
PROVIDERS: Visit Provider Nurse Practitioner Family
DX: I10 Essential (primary) hypertension (principal); E78.5 Hyperlipidemia, unspecified
CPT/HCPCS: 36415; 80053; 80061

== ENCOUNTER → 2021-06-04 18:54 | Outpatient (CLI) | payer BC, SELFPAY ==
[2021-06-04 19:46] LABS: Basophils # 0.1 K/mm3 (0-0.2); Basophils % 1.1 % (0.1-2.0); Eosinophils # 0.1 K/mm3 (0.0-0.4); Eosinophils % 1.6 % (0.1-12.0); Hematocrit 52.4 % (42.0-52.0); Hemoglobin 16.7 g/dL (14.1-18.0); Lymphocytes # 1.8 K/mm3 (0.7-4.5); Lymphocytes % 34.3 % (10-50); Mean Corpuscular Hemoglobin 30.4 pg (27.0-31.2); Mean Corpuscular Volume 95.1 fl (80-94); Mean Platelet Volume 10.3 fl (7.4-10.4); Monocytes # 0.3 K/mm3 (0.1-1.0); Monocytes % 5.9 % (1.7-9.3); Neutrophils # 2.9 K/mm3 (1.8-7.8); Neutrophils % 57.1 % (37.0-80.0); Platelet Count 145 K/mm3 (142-424); Red Cell Distribution Width 13.8 % (11.5-17.5); White Blood Count 5.1 K/mm3 (4.8-10.8)
[2021-06-04 19:56] LABS: Chloride 103 mmol/L (98-107); Sodium 139 mmol/L (136-145)
[2021-06-04 19:59] LABS: Alanine Aminotransferase 23 U/L (12-78); Albumin Level 4.1 g/dl (3.5-5.0); Albumin/Globulin Ratio 1.4 (1.1-1.8); Alkaline Phosphatase 74 U/L (38-126); Aspartate Amino Transferase 26 U/L (17-59); Bilirubin,Total 0.5 mg/dl (0.2-1.3); Blood Urea Nitrogen 17 mg/dl (9-20); Carbon Dioxide 30 mmol/L (22.0-30.0); Cholesterol 198 mg/dl (140-200); Estimated Glomerular Filt Rate 62 ml/min (>60); GFR (African American) 76 ML/MIN (>60); Total Protein,Serum 7.1 g/dl (6.3-8.2); Triglycerides 108 mg/dl (30-150); VLDL Cholesterol 22 mg/dL (0-40)
[2021-06-04 20:00] LABS: Calcium 9.2 mg/dl (8.4-10.2); Chol/HDL Ratio 3.7 (1-3.5); Glucose 94 mg/dl (74-100); HDL Cholesterol 54 mg/dl (40-60)
[2021-06-04 20:11] LABS: Direct LDL Cholesterol 125.26 mg/dL (100-129)
[2021-06-04 20:30] LABS: Thyroid Stimulating Hormone 1.85 uIU/mL (0.465-4.68)
[2021-06-04 21:26] LABS: Hemoglobin A1C 5.4 % (4.0-6.0)
== END ==
PROVIDERS: Visit Provider Internal Medicine Adolescent Medicine
DX: I10 Essential (primary) hypertension (principal); E78.5 Hyperlipidemia, unspecified; E66.9 Obesity, unspecified; Z68.30 Body mass index [BMI] 30.0-30.9, adult
CPT/HCPCS: 80053; 80061; 83036; 84443; 85025

== ENCOUNTER 2021-12-02 18:06 | Emergency (ER) | payer BC, SELFPAY ==
[2021-12-02 18:48] VITALS: BP 158/95; PULSE 97; RESP 18; TEMP 37.5; O2SAT 100; BMI 39.3
--- NOTE | 2021-12-02 19:07 | HMH.EDUTC ---
[facility] [place] Disposition Clinical Impression: Sinusitis Qualifiers: Sinusitis location: unspecified location Chronicity: acute Recurrence: non-recurrent Qualified Code(s): J01.90 - Acute sinusitis, unspecified Acute bronchitis Qualifiers: Bronchitis organism: unspecified organism Qualified Code(s): J20.9 - Acute bronchitis, unspecified Disposition: Home, Self-Care Condition on Discharge: Good Instructions: Sinusitis, DI for Sinusitis Additional Instructions: Drink plenty of fluids. Take tylenol or ibuprofen for pain or fever. Take the medications as directed. Follow up with your regular doctor. GO TO THE ER FOR ANY WORSENING SYMPTOMS Don't start the oral steroids until tomorrow, since you had the shot here today. The cough medication (promethazine dm) will make you drowsy, so don't drive or operate heavy machinery after taking it. Prescriptions: Amoxicillin/Potassium Clav [Amox-Clav 875-125 mg Tablet] 1 tab PO BID #20 tab Transmission Status: Received by [facility] Benzonatate [Benzonatate 100mg cap] 100 mg PO TIDP PRN #30 cap PRN Reason: Cough Transmission Status: Received by [facility] methylPREDNISolone [Medrol] 4 mg PO DIRECTED 6 Days #21 packet Transmission Status: Received by [facility] Referrals: Harvey Gannon MD [Primary Care Provider] - Time of Disposition: 20:13 Medical Decision Making - Medical Records Medical records reviewed: No: I reviewed the patient's medical records. - Liban Inquiry Pt receiving controlled substance: No Vital Signs: 12/02/21 18:48 12/02/21 20:38 Temperature 99.5 F 99.5 F Temperature Source Oral Pulse Rate 97 H Pulse Rate [Left] 97 H Respiratory Rate 18 18 Blood Pressure 158/95 H Blood Pressure [Right Arm] 158/95 H Blood Pressure Mean [Right Arm] 116 02 Sat by Pulse Oximetry 100 - Lab Data Lab results reviewed: Yes: I reviewed the patient's lab results. Lab Results 12/02/21 19:10: Influenza Type A Ag Negative, Influenza Type B Ag Negative 12/02/21 19:12: Group A Strep Rapid Negative Orders (Tests/Meds): ED MEDICATIONS Discontinued Medications Generic Name Dose Route Start Last Admin Trade Name Freq PRN Reason Stop Dose Admin Ceftriaxone Sodium 1 gm 12/02/21 20:11 12/02/21 20:33 Ceftriaxone 1gm Vial IM 12/02/21 20:12 1 gm ONCE ONE Administration Lidocaine HCl 0 ml 12/02/21 20:11 12/02/21 20:33 Lidocaine 1% 5ml Pf Vial IM 12/02/21 20:12 2 ml ONCE ONE Administration Methylprednisolone Sodium Succinate 125 mg 12/02/21 20:11 12/02/21 20:32 Methylprednisolone Sod Succ 125mg Vial IM 12/02/21 20:12 125 mg ONCE ONE Administration - Radiology Data #1 Image(s): Chest Image Reviewed: Yes I reviewed the patient's radiology image, Yes I have reviewed radiologist's interpretation Preliminary Findings: Normal/NAD, No Infiltrates Seen PROCEDURE INFORMATION: Exam: XR Chest Exam date and time: 12/02/21 07:20 PM Age: 56 years old Clinical indication: Cough; Additional info: Cough, congestion TECHNIQUE: Imaging protocol: XR of the chest. Views: 2 views. COMPARISON: CHESTWW CT chest wo/w con 01/05/18 09:54 AM FINDINGS: Lungs: Unremarkable. No consolidation. Pleural spaces: Unremarkable. No pleural effusion. No pneumothorax. Heart/Mediastinum: Unremarkable. No cardiomegaly. Bones/joints: Unremarkable. IMPRESSION: No acute findings. [facility] [place] HPI - General Stated complaint: sore throat,cough,HERNÁNDEZ, don Time Seen by Provider: 12/02/21 19:07 Mode of Arrival: Ambulatory Source of Information: Patient Limitations: No Limitations Description of Symptoms (Recalled from Triage Doc. by RN): pt states that 3 days ago he began having congestion, cough, and low grade fever. HEENT Symptoms (Recalled from RN notes): No Resp Symptoms (Recalled from RN notes): Yes Skin Symptom
[2021-12-02 19:18] LABS: UTC Influenza A Antigen Negative (Negative)
[2021-12-02 19:19] LABS: UTC Influenza B Antigen Negative (Negative)
--- NOTE | 2021-12-02 19:23 | XR_ITS ---
PROCEDURE INFORMATION: Exam: XR Chest Exam date and time: 12/02/21 07:20 PM Age: 56 years old Clinical indication: Cough; Additional info: Cough, congestion TECHNIQUE: Imaging protocol: XR of the chest. Views: 2 views. COMPARISON: CHESTWW CT chest wo/w con 01/05/18 09:54 AM FINDINGS: Lungs: Unremarkable. No consolidation. Pleural spaces: Unremarkable. No pleural effusion. No pneumothorax. Heart/Mediastinum: Unremarkable. No cardiomegaly. Bones/joints: Unremarkable. IMPRESSION: No acute findings.
[2021-12-02 19:25] LABS: Strep Scrn Group A (Rapid) Negative (Negative)
--- NOTE | 2021-12-02 19:36 | ECG_ITS ---
APPROVED REPORT Exam: Resting ECG HR:89 bpm ECG Measurements Heart Rate 89 AXES PA 148 P 61 QRSd 76 QRS 56 QT 343 T 67 QTc 389 Conclusion SINUS RHYTHM NORMAL ECG UNCONFIRMED REPORT Electronically signed by : Harvey Gannon MD 12/03/2021 07:59:12
[2021-12-02 20:38] VITALS: BP 158/95; PULSE 97; RESP 18; TEMP 37.5
== END 2021-12-02 20:39 | disposition home or self-care (01) ==
PROVIDERS: Emergency Provider Nurse Practitioner Family; PCP Internal Medicine Adolescent Medicine
DX: J01.90 Acute sinusitis, unspecified (principal); J02.9 Acute pharyngitis, unspecified; R06.02 Shortness of breath; I10 Essential (primary) hypertension; E78.5 Hyperlipidemia, unspecified; Z79.52 Long term (current) use of systemic steroids; Z79.899 Other long term (current) drug therapy; Z86.711 Personal history of pulmonary embolism; Z96.651 Presence of right artificial knee joint
CPT/HCPCS: 71046; 87430; 87804; 93005; 93041; 96372; 99213; G0463; J0696

== ENCOUNTER → 2022-06-01 08:45 | Outpatient (CLI) | payer BC, SELFPAY ==
--- NOTE | 2022-06-01 09:07 | CT_ITS ---
FINAL REPORT CLINICAL HISTORY: right lower qaud pain 75 cc of isuvue 370 saline flush pt drank rad cat FINDINGS: CT OF THE ABDOMEN AND PELVIS WITH CONTRAST Axial CT images of the abdomen and pelvis were obtained after the administration of oral and iv contrast. Coronal reformatted images were also obtained and reviewed.This study was performed with techniques to keep radiation doses as low as reasonably achievable (ALARA). Individualized dose reduction techniques using automated exposure control or adjustment of mA and/or kV according to the patient's size were employed. Abdomen: There is mild atelectasis or scarring in the right lung base.. The heart is normal in size. There is mild fatty infiltration of the liver. The gallbladder is present. The spleen is unremarkable. No adrenal mass is present. The pancreas has an unremarkable appearance. There is a less than 3 mm nonobstructing right renal stone. The aorta is normal in caliber. There is no free fluid or adenopathy. No mass or abnormal fluid collection is seen. There is a small umbilical hernia containing fat. Pelvis: The appendix normal. There is sigmoid diverticulosis. There is urinary bladder wall thickening which is likely inflammatory. There is no evidence of mass or adenopathy. There is no evidence of bowel obstruction. IMPRESSION: Less than 3 mm nonobstructing right renal stone with no hydronephrosis. Sigmoid diverticulosis without evidence of diverticulitis. Reviewed, Interpreted and Dictated by Kings Jules III, MD Transcribed by Adele Martínez Authenticated and [facility]
[2022-06-01 09:43] LABS: Blood Urea Nitrogen 21 mg/dl (9-20); Estimated Glomerular Filt Rate 69 ml/min (>60); GFR (African American) 83 ML/MIN (>60)
== END ==
PROVIDERS: PCP Family Medicine; Visit Provider Surgery
DX: R10.31 Right lower quadrant pain (principal)
CPT/HCPCS: 36415; 74177; 82565; 84520; Q9967

== ENCOUNTER → 2023-06-28 08:54 | Outpatient (CLI) | payer BC, SELFPAY ==
[2023-06-28 16:54] LABS: Basophils % 0.6 % (0.1-2.0); Eosinophils # 0.1 K/mm3 (0.0-0.4); Eosinophils % 3.1 % (0.1-12.0); Hemoglobin 15.7 g/dL (14.1-18.0); Lymphocytes # 1.7 K/mm3 (0.7-4.5); Lymphocytes % 36.9 % (10-50); Mean Corpuscular HGB Conc 33.3 g/dL (31.8-35.4); Mean Corpuscular Hemoglobin 31.3 pg (27.0-31.2); Mean Corpuscular Volume 93.9 fl (80-94); Mean Platelet Volume 10.7 fl (7.4-10.4); Monocytes # 0.3 K/mm3 (0.1-1.0); Monocytes % 6.3 % (1.7-9.3); Neutrophils # 2.5 K/mm3 (1.8-7.8); Neutrophils % 53.1 % (37.0-80.0); Platelet Count 145 K/mm3 (142-424); Red Blood Count 5.01 M/mm3 (4.60-6.20); Red Cell Distribution Width 13.4 % (11.5-17.5); White Blood Count 4.7 K/mm3 (4.8-10.8)
[2023-06-28 17:51] LABS: Hemoglobin A1C 5.5 % (4.0-6.0)
[2023-06-28 18:11] LABS: Alanine Aminotransferase 28 U/L (12-78); Albumin Level 4.2 g/dl (3.5-5.0); Albumin/Globulin Ratio 1.6 (1.1-1.8); Alkaline Phosphatase 76 U/L (38-126); Aspartate Amino Transferase 30 U/L (17-59); Bilirubin,Total 0.6 mg/dl (0.2-1.3); Blood Urea Nitrogen 19 mg/dl (9-20); Carbon Dioxide 26 mmol/L (22.0-30.0); Chloride 102 mmol/L (98-107); Cholesterol 252 mg/dl (140-200); Estimated Glomerular Filt Rate 62 ml/min (>60); GFR (African American) 75 ML/MIN (>60); Globulin 2.7 g/dL (1.3-3.2); Glucose 82 mg/dl (74-100); Total Protein,Serum 6.9 g/dl (6.3-8.2); Triglycerides 169 mg/dl (30-150); VLDL Cholesterol 34 mg/dL (0-40)
[2023-06-28 18:13] LABS: HDL Cholesterol 38 mg/dl (40-60); Potassium 4.9 mmoL/L (3.5-5.1)
[2023-06-28 18:17] LABS: Chol/HDL Ratio 6.6 (1-3.5)
[2023-06-28 18:22] LABS: Direct LDL Cholesterol 179.67 mg/dL (100-129)
[2023-06-28 20:27] LABS: Anion Gap 12.9 mEq/L (5-15); Sodium 136 mmol/L (136-145)
[2023-06-30 08:17] LABS: Testosterone,Total 197 ng/dL (264-916)
== END ==
PROVIDERS: PCP Family Medicine; Visit Provider Family Medicine
DX: Z00.00 Encounter for general adult medical examination without abnormal findings (principal); I10 Essential (primary) hypertension; R53.83 Other fatigue; Z13.1 Encounter for screening for diabetes mellitus; Z87.891 Personal history of nicotine dependence
CPT/HCPCS: 80053; 80061; 83036; 84403; 84443; 85025

== ENCOUNTER 2023-10-04 20:16 | Outpatient (CLI) | payer BC, SELFPAY ==
[2023-10-04 16:26] LABS: Alanine Aminotransferase 35 U/L (12-78); Albumin Level 3.8 g/dl (3.5-5.0); Albumin/Globulin Ratio 1.5 (1.1-1.8); Alkaline Phosphatase 65 U/L (38-126); Anion Gap 9.5 mEq/L (5-15); Aspartate Amino Transferase 30 U/L (17-59); Bilirubin,Total 0.6 mg/dl (0.2-1.3); Blood Urea Nitrogen 15 mg/dl (9-20); Calcium 9.1 mg/dl (8.4-10.2); Carbon Dioxide 26 mmol/L (22.0-30.0); Chloride 107 mmol/L (98-107); Chol/HDL Ratio 5.9 (1-3.5); Cholesterol 195 mg/dl (140-200); Estimated Glomerular Filt Rate 69 ml/min (>60); GFR (African American) 83 ML/MIN (>60); Globulin 2.6 g/dL (1.3-3.2); Glucose 107 mg/dl (74-100); HDL Cholesterol 33 mg/dl (40-60); Potassium 4.5 mmoL/L (3.5-5.1); Sodium 138 mmol/L (136-145); Total Protein,Serum 6.4 g/dl (6.3-8.2); Triglycerides 181 mg/dl (30-150); VLDL Cholesterol 36 mg/dL (0-40)
[2023-10-04 16:31] LABS: Basophils % 0.6 % (0.1-2.0); Eosinophils # 0.1 K/mm3 (0.0-0.4); Eosinophils % 3.5 % (0.1-12.0); Hematocrit 50.5 % (42.0-52.0); Hemoglobin 16.1 g/dL (14.1-18.0); Lymphocytes # 1.4 K/mm3 (0.7-4.5); Lymphocytes % 39.8 % (10-50); Mean Corpuscular HGB Conc 31.9 g/dL (31.8-35.4); Mean Corpuscular Hemoglobin 30.9 pg (27.0-31.2); Mean Corpuscular Volume 96.9 fl (80-94); Mean Platelet Volume 10.9 fl (7.4-10.4); Monocytes # 0.3 K/mm3 (0.1-1.0); Monocytes % 7.9 % (1.7-9.3); Neutrophils # 1.7 K/mm3 (1.8-7.8); Neutrophils % 48.2 % (37.0-80.0); Platelet Count 130 K/mm3 (142-424); Red Blood Count 5.21 M/mm3 (4.60-6.20); Red Cell Distribution Width 13.3 % (11.5-17.5); White Blood Count 3.5 K/mm3 (4.8-10.8)
[2023-10-04 16:37] LABS: Direct LDL Cholesterol 116.43 mg/dL (100-129)
[2023-10-05 08:24] LABS: Testosterone,Total 134 ng/dL (264-916)
== END 2023-10-04 23:59 ==
LOC: LAB.DROPOF 20:16
PROVIDERS: PCP Family Medicine; Visit Provider Family Medicine
DX: I10 Essential (primary) hypertension (principal); E78.5 Hyperlipidemia, unspecified; R79.89 Other specified abnormal findings of blood chemistry; Z87.891 Personal history of nicotine dependence
CPT/HCPCS: 80053; 80061; 84403; 85025

== ENCOUNTER 2024-01-17 09:20 | Outpatient (CLI) | payer BC, SELFPAY ==
[2024-01-17 16:36] LABS: Basophils # 0.1 K/mm3 (0-0.2); Basophils % 1.6 % (0.1-2.0); Eosinophils # 0.1 K/mm3 (0.0-0.4); Eosinophils % 2.8 % (0.1-12.0); Hematocrit 55.3 % (42.0-52.0); Hemoglobin 17.9 g/dL (14.1-18.0); Lymphocytes # 1.2 K/mm3 (0.7-4.5); Lymphocytes % 32.2 % (10-50); Mean Corpuscular HGB Conc 32.4 g/dL (31.8-35.4); Mean Corpuscular Hemoglobin 30.4 pg (27.0-31.2); Mean Corpuscular Volume 93.8 fl (80-94); Mean Platelet Volume 10.5 fl (7.4-10.4); Monocytes # 0.2 K/mm3 (0.1-1.0); Monocytes % 6.4 % (1.7-9.3); Neutrophils # 2.1 K/mm3 (1.8-7.8); Neutrophils % 56.9 % (37.0-80.0); Platelet Count 118 K/mm3 (142-424); Red Cell Distribution Width 14.2 % (11.5-17.5); White Blood Count 3.7 K/mm3 (4.8-10.8)
[2024-01-19 11:19] LABS: Testosterone,Total 311 ng/dL (264-916)
== END 2024-01-17 23:59 | disposition home or self-care (01) ==
LOC: LAB.DROPOF 01-18 09:21
PROVIDERS: PCP Nurse Practitioner Family; Visit Provider Nurse Practitioner Family
DX: E29.1 Testicular hypofunction (principal); E34.9 Endocrine disorder, unspecified
CPT/HCPCS: 84403; 85025

== ENCOUNTER 2024-07-02 11:20 | Outpatient (CLI) | payer BC, SELFPAY ==
[2024-07-02 16:23] LABS: Basophils % 0.6 % (0.1-2.0); Eosinophils # 0.1 K/mm3 (0.0-0.4); Eosinophils % 2.1 % (0.1-12.0); Hematocrit 47.7 % (42.0-52.0); Hemoglobin 15.9 g/dL (14.1-18.0); Lymphocytes # 1.6 K/mm3 (0.7-4.5); Lymphocytes % 32.1 % (10-50); Mean Corpuscular HGB Conc 33.4 g/dL (31.8-35.4); Mean Corpuscular Hemoglobin 31.5 pg (27.0-31.2); Mean Corpuscular Volume 94.6 fl (80-94); Mean Platelet Volume 9.4 fl (7.4-10.4); Monocytes # 0.4 K/mm3 (0.1-1.0); Monocytes % 7.1 % (1.7-9.3); Neutrophils # 2.9 K/mm3 (1.8-7.8); Platelet Count 127 K/mm3 (142-424); Red Blood Count 5.04 M/mm3 (4.60-6.20); Red Cell Distribution Width 13.5 % (11.5-17.5)
[2024-07-02 16:29] LABS: VLDL Cholesterol 40 mg/dL (0-40)
[2024-07-02 16:56] LABS: Alanine Aminotransferase 28 U/L (12-78); Albumin Level 4.3 g/dl (3.5-5.0); Albumin/Globulin Ratio 1.7 (1.1-1.8); Alkaline Phosphatase 59 U/L (38-126); Anion Gap 14.3 mEq/L (5-15); Aspartate Amino Transferase 27 U/L (17-59); Bilirubin,Total 0.6 mg/dl (0.2-1.3); Blood Urea Nitrogen 16 mg/dl (9-20); Calcium 9.4 mg/dl (8.4-10.2); Carbon Dioxide 24 mmol/L (22.0-30.0); Chloride 104 mmol/L (98-107); Chol/HDL Ratio 5.1 (1-3.5); Cholesterol 218 mg/dl (140-200); Estimated Glomerular Filt Rate 68 ml/min (>60); GFR (African American) 83 ML/MIN (>60); Globulin 2.5 g/dL (1.3-3.2); Glucose 64 mg/dl (74-100); HDL Cholesterol 43 mg/dl (40-60); Potassium 4.3 mmoL/L (3.5-5.1); Sodium 138 mmol/L (136-145); Total Protein,Serum 6.8 g/dl (6.3-8.2); Triglycerides 198 mg/dl (30-150)
[2024-07-02 17:09] LABS: Direct LDL Cholesterol 141.81 mg/dL (100-129)
[2024-07-02 17:14] LABS: T4 (Thyroxine) 9.6 ug/dl (5.53-11.0)
[2024-07-02 17:27] LABS: Prostate Specific Ag Screen 0.2 ng/ml (0.0-4.0)
[2024-07-02 17:43] LABS: HIV (1&2) Antibody Rapid NONREACTIVE (NONREACTIVE)
[2024-07-03 08:20] LABS: HCV Ab Non Reactive (Non Reactive)
== END 2024-07-02 23:59 | disposition home or self-care (01) ==
LOC: LAB.DROPOF 07-03 08:34
PROVIDERS: PCP Family Medicine; Visit Provider Family Medicine
DX: R53.83 Other fatigue (principal); Z11.59 Encounter for screening for other viral diseases; Z12.5 Encounter for screening for malignant neoplasm of prostate
CPT/HCPCS: 80050; 80053; 80061; 84436; 84443; 85025; 86803; 87389; G0103

== ENCOUNTER 2024-07-03 08:10 | Outpatient (CLI) | payer BC, SELFPAY ==
[2024-07-13 06:37] LABS: Free Testosterone (Direct) 2.4 pg/mL (6.6-18.1); Testosterone, Total, LC/MS 321.9 ng/dL (264.0-916.0)
== END 2024-07-03 23:59 | disposition home or self-care (01) ==
LOC: LAB.DROPOF 07-04 06:59
PROVIDERS: PCP Family Medicine; Visit Provider Family Medicine
DX: R79.89 Other specified abnormal findings of blood chemistry (principal)

== ENCOUNTER 2025-01-18 14:31 | Outpatient (POV) | payer BC, SELFPAY ==
--- OUTSIDE RECORDS SUMMARY | 2025-01-18 14:34 | XMS_ITS | Clinical Summary ---
Author Organization [facility] [place] [address] Care Team Providers Care Polysomnographic Technician Name Role Phone Unavailable Primary Care Provider Unavailabl e Social History Tobacco Use Types Packs/Day Years Used Date Smoking Tobacco: Never Assessed Sex and Gender Information Value Date Recorded Sex Assigned at Not on file Legal Sex Male 11:08 PM EDT Gender Identity Not on file Sexual Orientation Not on file Plan of Treatment Health Maintenance Due Date Last Done Comments Annual Wellness Exam 02/13/1967 Hepatitis C Screening 02/13/1982 DTaP/TDaP/Td (1 - Tdap) 02/13/1983 Cologuard 02/13/2009 Colon Cancer Screening 02/13/2009 Colonoscopy 02/13/2009 FIT 02/13/2009 Sigmoidoscopy 02/13/2009 Virtual Colonography 02/13/2009 Pneumococcal Vaccine 50+ (1 of 1 - PCV) 02/13/2014 Zoster (1 of 2) 02/13/2014 COVID-19 Vaccine (2023-2 5 season) 2024 Influenza Vaccine (Season Ended) 2025 Hepatitis B Vaccine Aged Out No longe r eligible based on patient's age to complete this topic Meningococcal B Vaccine Aged Out No l onger eligible based on patient's age to complete this topic
[2025-01-18 14:51] VITALS: BP 148/85; PULSE 88; RESP 18; O2SAT 94; BMI 36.3
--- NOTE | 2025-01-18 16:29 | A.OFFVIS_ITS ---
HPI Data of Consult Patient: new to practice Consult date: 01/18/25 Requesting Physician: Brandi Story APRN Primary Care Provider: Baltazar Ray MD Reason for consult: Low back pain, left knee pain History of present illness: Mr. Montesinos is a 59 year old male who presents today as a new patient. Today he rates his pain a 7 out of 10. Patient states he has chronic pain there at his low back and left knee that has been going on for longer than 5 years. 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 Patient does describe it as an aching, throbbing sensation with occasional numbness and tingling. He does state that overall the back pain is worse than the knee pain. Patient does state it interferes with his ability perform activities of daily living such as cooking and cleaning. Patient has had a right knee replacement however stated that he never ended up doing the left knee. He does states that he has very limited range of motion overall between the low back and the knee. Patient does state certain movements do seem more aggravated with the back such as bending, twisting or lifting. Patient has tried oral medications such as Tylenol along with ibuprofen, heat and ice and topicals with minimal changes. Patient does state that in the past he was sent to a pain clinic about 2 years ago in [place] and they did prescribe him diclofenac and that this has helped. He states he only takes diclofenac 75 mg once a day and only on rare occasions will he take a second tablet at bedtime. He has also been prescribed muscle relaxers and states those will occasionally help some. Patient denies any recent physical therapy however states that he went to a chiropractor on a regular basis for years and then it never seemed to make much improvement. He has continued conservative treatment of home exercise and stretching that was physician guided with no changes. He denies any back surgery or previous injection history. Patient does state that he did have imaging there at the chiropractor's office last year. His Liban has been reviewed and is appropriate. Pain at rest (0-10 scale): 7 Has patient had previous pain injection?: No Conservative treatment options previously tried: NSAIDS (Longer than 12 weeks), Home exercise plan (Longer than 12 weeks) and Chiropractor (Longer than 1 year) cc:: CC: Brandi Story APRN [facility] Disclaimer: The information contained in this section may have been updated after the patient was seen, as this information can be updated by other users. Medical History Low testosterone Hyperlipidemia Pulmonary embolism DVT (deep venous thrombosis) Hypertension Surgical History History of right knee joint replacement Family History Mother Cancer Social History Smoking Status: Former smoker smoking status stop date: 08/08/2007 alcohol intake: never current occupational status: employed Travel in the last 8 weeks?: None Review of Systems Review of Systems Review of systems:: pertinent systems reviewed and negative unless documented below Review of systems (narrative): Review of Systems: General: No recent weight changes, no fever, no sleep disturbances Respiratory: No cough, no shortness of air, no recurring pulmonary infections Cardiovascular/peripheral vascular: No chest pain, no palpitations, no edema, no shortness of breath Gastrointestinal: No new onset incontinence, normal bowel movements reported Genitourinary: No new onset incontinence Musculoskeletal: Low back pain, left knee pain Psychiatric: [Normal mood/affect] Neurological: [Denies weakness in extremities], [denies balance issues] Meds Home Medications and Allergies Home Medications ?Medication ?Instructions ?Recorded ?Confirmed ?Type aspirin 81 mg tablet,delayed 162 mg PO DAILY 05/18/22 01/18/25 History release lisinopril 10 See Rx Instructions .Route 0 10/03/23 01/18/25 Rx mg-hydrochlorothiazide 12.5 mg .COMPLEX #90 tabs tablet pravastatin 40 mg tablet 40 mg PO HS Cholesterol 90 d ays 07/30/24 01/18/25 Rx #90 tabs diclofenac sodium 50 mg See Rx Instructions .Route 0 10/26/24 01/18/25 Rx tablet,delayed release .COMPLEX #180 tabs New Prescriptions to Start Prescriptions: Allergies Allergy/AdvReac Type Severity Reaction Status Date / Time No Known Allergies Allergy Verified 07/02/24 10:27 Objective Vital signs: Pulse Resp BP Pulse Ox O2 Del Method 88 18 148/85 H 94 L Room Air 01/18/25 14:51 01/18/25 14:51 01/18/25 14:51 01/18/25 14:51 01/18/25 14:51 Narrative: Physical Exam: General: Alert and oriented x3, no acute distress, pleasant and cooperative Lungs: Respirations even and unlabored, symmetrical chest expansion Eyes: PERRL Musculoskeletal: Flexion and extension of lumbar [spine] somewhat guarded secondary to pain, [antalgic gait noted] positive Kemps test Neurological: Speech clear, no gross sensory deficit Assessment and Plan *Assessment and plan (1) Back pain: Status: Acute Category: Medical Code(s): M54.9 - Dorsalgia, unspecified (2) Lumbar facet arthropathy: Status: Acute Category: Medical Code(s): M47.816 - Spondylosis without myelopathy or radiculopathy, lumbar region (3) Left knee pain: Status: Acute Category: Medical Code(s): M25.562 - Pain in left knee Plan Patient is experiencing significant pain in his low back that is worse with bending, twisting or lifting. He denied any radiating symptoms into his legs. Patient did have limited range of motion of his lumbar spine with a positive Kemps test during today's visit. I did discuss with the patient that I do believe he would benefit from a lumbar medial branch block. Risk and benefits were discussed with the patient and he would like to proceed forward with this plan of care. Patient has tried and failed conservative therapy including oral medications, heat and ice, topicals, at home stretching exercise for longer than 12 weeks. Patient has been experiencing chronic low back pain for years. Patient was counseled that if he does get significant relief with his first lumbar medial branch block that we will plan on repeating it with the plan to progress forward to a lumbar RFA at a later date. Patient agrees with this plan of care. Patient will be scheduled for his first diagnostic lumbar medial branch block bilaterally L4-L5 and L5-S1 under fluoroscopy. I will also order the patient a compounded cream. We will also reach out to the chiropractor office and get a copy of his most recent imaging. Patient has been instructed to contact the clinic with any concerns before the next appointment. Dr. Hernandez has reviewed this note and agrees with this plan of care. This note was dictated using voice recognition software and make contain errors or omissions. All injections are used with Lidocaine, Bupivacaine and dexamethasone unless diagnostic in which there is no steroids injected. Occasionally urine drug screen is needed to verify patient's compliance with our office pain contract. This is ordered based off specific treatments related to chronic pain with the potential to abuse certain medications.
== END 2025-01-18 23:59 | disposition home or self-care (01) ==
LOC: SC.PAIN 14:32
PROVIDERS: PCP Family Medicine; Visit Provider Nurse Practitioner Family
DX: M47.816 Spondylosis without myelopathy or radiculopathy, lumbar region (principal); M25.562 Pain in left knee; Z79.899 Other long term (current) drug therapy; Z79.1 Long term (current) use of non-steroidal anti-inflammatories (NSAID)
CPT/HCPCS: 99202; G0463

== ENCOUNTER 2025-02-19 08:06 | Day surgery (SDC) | payer BC, SELFPAY ==
[2025-02-19 08:16] VITALS: BP 152/100; PULSE 95; RESP 18; O2SAT 95
[2025-02-19] MEDS: LIDOCAINE 1% 5ML PF VIAL 5 ML (08:24)
[2025-02-19] MEDS: BUPIVACAINE 0.25% 10ML INJ 25 MG IJ (08:24)
[2025-02-19 08:32] VITALS: BP 161/99; PULSE 90; RESP 18; O2SAT 99; BMI 38.0
[2025-02-19 08:37] VITALS: BP 134/84; PULSE 87; RESP 18; O2SAT 98
--- NOTE | 2025-02-19 08:42 | P.PCN_ITS ---
Procedure Date: 02/19/25 Time: 08:20 Anesthesiologist:: Diego Prado CRNA Complications:: None Pre-procedure Diagnosis:: Degenerative disc lumbar spine multilevels. Lumbar radiculopathy. Lumbar spondylosis. Multilevel lumbar facet arthropathy. Post-procedure Diagnosis:: Same. Indications for Procedure:: Patient is a pleasant 60-year-old male who comes our clinic today for ROUND ONE of local only lumbar medial branch blocks/facet injections at the bilateral L4- 5, L5-S1 levels. Patient describes low lumbar back pain as constant, dull, aching. He reports having difficulty with lumbar flexion, extension, left and right rotation. He rates his pain 7/10. Procedure Details:: Informed consent was obtained and the risk and benefits of the procedure was explained to the patient. Patient was taken to the procedure room where noninvasive monitors were placed, including noninvasive blood pressure cuff as well as pulse oximeter. The area over the lumbar spine was cleansed using chlorhexidine as a cleansing solution. I anesthetized the skin and subcutaneous tissues with 1% Lidocaine. I placed 22-gauge spinal needles into the facet joint/ medial branches of [L3-L4, L4-L5, and L5-S1] bilaterally. Needle placement was confirmed with fluoroscopy. After confirmation of needle placement, each site was injected with 1 mL of 1% lidocaine and 1 mL of 0.25 % Marcaine.Patient tolerated the procedure without difficulty. There were no comp lications. Plan and Disposition:: Patient was discharged without incident.
== END 2025-02-19 08:37 | disposition home or self-care (01) ==
PROVIDERS: PCP Family Medicine; Visit Provider Nurse Anesthetist, Certified Registered
DX: M47.816 Spondylosis without myelopathy or radiculopathy, lumbar region (principal); M51.16 Intervertebral disc disorders with radiculopathy, lumbar region; I10 Essential (primary) hypertension; E78.5 Hyperlipidemia, unspecified; Z86.711 Personal history of pulmonary embolism; Z86.718 Personal history of other venous thrombosis and embolism; Z87.891 Personal history of nicotine dependence; Z79.82 Long term (current) use of aspirin; Z79.899 Other long term (current) drug therapy
CPT/HCPCS: 64493; 64494; J0665; J2003

== ENCOUNTER 2025-02-28 13:04 | Outpatient (POV) | payer BC, SELFPAY ==
--- OUTSIDE RECORDS SUMMARY | 2025-02-28 13:10 | XMS_ITS | Clinical Summary ---
Author Organization [facility] [place] [address] Care Team Providers Care Stable Hand Name Role Phone Unavailable Primary Care Provider [...] Vaccine (2023-2 5 season) 2024 Influenza Vaccine (#1) 2025 Hepatitis B Vaccine Aged Out No longe r eligible based on patient's age to complete this topic Meningococcal B Vaccine Aged Out No l onger eligible based on patient's age to complete this topic
--- OUTSIDE RECORDS SUMMARY | 2025-02-28 13:10 | XMS_ITS | Data Portability ---
Author Organization [facility] RANCHO GonsalvesS [place] CLOS[facility] Address [address] [place] [address] Care Team Providers Care Stamping Mill Tender Name Role Phone VAISHNAVI OTTNETH Primary Care Provider CORY HERNANDEZ Master At Arms Assessment No assessment recorded. Plan of Treatment Reminders Order Date Submit Date Provider Last Modified By Organization Details Last Modified Time Details Appointments FOLLOW UP [facility] 2024 08:50A Dayana HERNANDEZ MD Not available Not available Not available Lab None recorded . Referral None recorded . Procedures None recorded . Surgeries None recorded . Imaging None recorded . Medication Orders None recorded . Patient TargetsNo targets recorded. Patient InstructionsNo instructions recorded. Reason for Referral None Reported. Procedures Surgical History Date Name Laterality Status Provider Name and Address Organization Details Recorded Time 07/28/20 23 Destruction Premalignant Lesion(s) completed CORY HERNANDEZ MD [address] [place] [address], [id number], [facility] 07/28/2023 16:45:40 Imaging Results None recorded. Procedure Notes None recorded. Medical Equipment None Reported. Allergies No known drug allergies Medications Name Sig Start Date Stop Date Status Note LastModified by Organization Details LastModified Time ibuprofen active Not Available Not Florina ilable Not Available metoprolol succinate active Not Available Not Available No t Available Baby Aspirin active Not Available Not Available Not Available Vitals None Recorded Social History Question Answer Notes LastModified by Organizat ion Details LastModified Time Tobacco Smoking Status Never Smoker Yessenia garay, [facility] 07/28/2023 10:38:26 Sunscreen Use? No Informatio n not available 07/28/2023 Sex: Unknown Functional Status Question Answer Note LastModified by Organizat ion Details LastModified Time What is your level of alcohol consumption? Occasional Information not available 07/28/2023 Mental Status None recorded. Family History Nothing Reported. Medical History Condition Response Varicose Veins N Skin Problems N Autoimmune disease N Squamous Cell Carcinoma N Basal Cell Carcinoma N Skin Cancer N Eczema N Melanoma N Other Skin Condition Y Acne N Past Encounters Encounter ID Performer Location Encounter Start Date Encounter Closed Date Diagnosis/Indication Diagnosis SNOMED-CT Code Diagnosis ICD10 Code Diagnosis Note [id number] CORY HERNANDEZ MD [address] [address] [place] [address] 07/28/2023 10:32:20 07/29/2023 14:18:42 Melanocytic nevus of skin 202572283 D22.5 Reassuranc e given. Solar lentiginosis 71752 2007 L81.4 Reassuranc e given. Zinc and titanium SPF30+ sunscreen recommende d Seborrheic keratosis 394 988351 L82.1 Reassuranc e given Hemangioma of skin 09272 006 D18.01 Reassuranc e given Actinic keratosis 570859 007 L57.[address] today Health Concerns Section Related Observation LastModified by Organization Detai ls LastModified Time None Recorded Concern Status LastModified by Organization Details LastModified Time None Recorded Advance Directives Directive None Recorded Payers Insurance Date Sequence Insurance Name Policy Number Policy Mead Covered Member ID Mead Member ID Guarantor Name 08/03/2023 1 [place] [id number] Rachel Montesinos [id number] Riccardo Montesinos Notes Date Note Type Note Provider Name and Address Organization Details Recorded Time 07/28/2023 text/html I have different spots on my skin that I'd like to be checked Extent of skin exam requested:waist up CORY HERNANDEZ MD [address], [place], [address], [place] [facility] 07/28/2023 16:46:19
[2025-02-28 13:27] VITALS: BP 130/74; PULSE 78; RESP 14; O2SAT 98; BMI 35.3
--- NOTE | 2025-02-28 13:53 | A.OFFVIS_ITS ---
[facility] Disclaimer: The information contained in this section may have been updated after the patient was seen, as this information can be updated by other users. Medical History Low testosterone Hyperlipidemia Pulmonary embolism DVT (deep venous thrombosis) Hypertension Surgical History History of right knee joint replacement Family History Mother Cancer Social History Smoking Status: Former smoker smoking status stop date: 08/08/2007 alcohol intake: never current occupational status: other Travel in the last 8 weeks?: None PM Subjective & Objective Subjective Subjective:: Patient is a pleasant 60-year-old male who presents today for follow-up of his first lumbar medial branch block bilaterally at L4-L5 and L5-S1 on 02/19/2025. Today he rates his pain a 2 out of 10. He does state the first 2 to 3 days were amazing and rating at least 80% if not more relief. He does state he is having a little bit more pain now but still rating about 60% relief. He states he has been able to increase his activity and doing more bending and walking is so much easier. Patient has also been using the compounded cream and states it really makes a difference as well. Patient does state since having this procedure he has not had to use the cream on his low back. He denies any other changes. His Liban has been reviewed and is appropriate. Review of Systems: General: No recent weight changes, no fever, no sleep disturbances Respiratory: No cough, no shortness of air, no recurring pulmonary infections Cardiovascular/peripheral vascular: No chest pain, no palpitations, no edema, no shortness of breath Gastrointestinal: No new onset incontinence, normal bowel movements reported Genitourinary: No new onset incontinence Musculoskeletal: Low back pain Psychiatric: [Normal mood/affect] Neurological: [Denies weakness in extremities], [denies balance issues] Pain at rest (0-10 scale): 2 Objective Objective:: Physical Exam: General: Alert and oriented x3, no acute distress, pleasant and cooperative Lungs: Respirations even and unlabored, symmetrical chest expansion Eyes: PERRL Musculoskeletal: Flexion and extension of lumbar [spine] somewhat guarded secondary to pain, [antalgic gait noted] Neurological: Speech clear, no gross sensory deficit Has patient had previous pain injection?: Yes Percent improvement in pain since last injection: 80% Conservative treatment options previously tried: Home exercise plan Length of treatment: Longer than 12 weeks Meds Home Medications and Allergies Home Medications ?Medication ?Instructions ?Recorded ?Confirmed ?Type aspirin 81 mg tablet,delayed 162 mg PO DAILY 05/18/22 02/28/25 History release lisinopril 10 See Rx Instructions .Route 0 10/03/23 02/28/25 Rx mg-hydrochlorothiazide 12.5 mg .COMPLEX #90 tabs tablet diclofenac sodium 50 mg See Rx Instructions .Route 0 10/26/24 02/28/25 Rx tablet,delayed release .COMPLEX #180 tabs pravastatin 40 mg tablet See Rx Instructions .Route 0 02/04/25 02/28/25 Rx .COMPLEX #90 tabs New Prescriptions to Start Prescriptions: Allergies Allergy/AdvReac Type Severity Reaction Status Date / Time No Known Allergies Allergy Verified 07/02/24 10:27 Assessment and Plan *Assessment and plan (1) Lumbar facet arthropathy: Status: Acute Category: Medical Code(s): M47.816 - Spondylosis without myelopathy or radiculopathy, lumbar region Plan Patient has had significant improvement following his first lumbar medial branch block and does not require any additional injection therapy at this time. Patient was counseled when the pain does start to return we will plan on repeating these injections. Patient will return to clinic in 1 month for reevaluation of symptoms and plan of care. Patient has been instructed to contact the clinic with any concerns before the next appointment. Dr. Hernandez has reviewed this note and agrees with this plan of care. This note was dictated using voice recognition software and make contain errors or omissions. All injections are used with Lidocaine, Bupivacaine and dexamethasone. Occasionally urine drug screen is needed to verify patient's compliance with our office pain contract. This is ordered based off specific treatments related to chronic pain with the potential to abuse certain medications.
== END 2025-02-28 23:59 | disposition home or self-care (01) ==
LOC: SC.PAIN 13:05
PROVIDERS: PCP Family Medicine; Visit Provider Nurse Practitioner Family
DX: M47.816 Spondylosis without myelopathy or radiculopathy, lumbar region (principal)
CPT/HCPCS: 99212; G0463

== ENCOUNTER 2025-03-28 13:31 | Outpatient (POV) | payer BC, SELFPAY ==
--- OUTSIDE RECORDS SUMMARY | 2025-03-28 13:49 | XMS_ITS | Clinical Summary ---
Author Organization [facility] Address [address] [place] [address] Care Team Providers Care Oracle Database Administrator Name Role Phone Grey Alexis MD Primary Care Provider [phone] Allergies No known active allergies Medications pravastatin (PRAVACHOL) 40 MG tablet 7 Active TOPROL XL 25 MG 24 hr tablet 8 Active sodium-potassiu m-magnesium sulfates (Suprep Bowel Prep Kit) 17.5-3.13-1.6 GM/177ML solution oral solution Use as directed by provider for colonoscopy prep 354 mL 4 Active Active Problems Problem Noted Date Diagnosed Date Lung nodule 09/30/2017 Family History Medical History Relation Name Comments No Known Problems Father Alzheimer's disease Mother Relation Name Status Comments Father Alive Mother Social History Tobacco Use Types Packs/Day Years Used Date Smoking Tobacco: Former Cigarettes Q uit: 2009 Smokeless Tobacco: Current Alcohol Use Standard Drinks/Week Comments Yes 0 (1 standard drink = 0.6 oz pur e alcohol) social drinker Abuse Screen Answer Date Recorded Unsafe at Home or Work/School Not on file Feels Threatened by Someone? Not on file 06/2023 Does Anyone Keep You from Co ntacting Others or Doint Things Outside the Home? Not on file 05/18/2023 Physical Sign of Abuse Present Not on file 1 Housing Stability Answer Date Recorded Current Living Arrangements Not on file 05/08 Potentially Unsafe Housing Conditions Not on mary e 05/18/2023 Family and Community Support Answer Jeison e Recorded Help with Day-to-Day Activities Not on file 05/18/2023 Lonely or Isolated Not on file 05/18/2023 Employment Answer Date Recorded Do you want help finding or keeping work or a sabrina b? Not on file 05/18/2023 Disabilities Answer Date Recorded Concentrating, Remembering, or Making Decisions Difficulty Not on file 05/18/2023 Doing Errands Independently Difficulty Not on fi le 05/18/2023 Education Answer Date Recorded Help with school or training? Not on file Preferred Language Not on file 05/18/2023 Sex and Gender Information Value Date Recorded Sex Assigned at Not on file Legal Sex Male 4:26 PM EST Gender Identity Not on file Sexual Orientation Not on file Occupation Industry Job Start Date Job End Date self employeed Not on file Not on file Not on file Last Filed Vital Signs Vital Sign Reading Time Taken Comments Blood Pressure 137/80 09/30/2017 12:30 PM EST Pulse 93 09/30/2017 12:30 PM EST Temperature 36.9 C (98.4 F) 09/30/2017 12:30 PM EST Respiratory Rate - - Oxygen Saturation 96% 09/30/2017 12:30 PM EST Inhaled Oxygen Concentration - - Weight 132 kg (291 lb) 09/30/2017 12:30 PM EST Height 182.9 cm (6') 09/30/2017 12:30 PM EST Body Mass Index 39.47 09/30/2017 12:30 PM EST Plan of Treatment Health Maintenance Due Date Last Done Comments TDAP/TD VACCINES (2 - Tdap) 10/08/2006 10/08/1996 COLOGUARD 02/13/2009 COLON CANCER SCREENING 5 YEA R SIGMOIDOSCOPY 02/13/2009 CT COLONOGRAPHY 02/13/2009 FECAL OCCULT BLOOD TEST 02/13/2009 FIT Testing (1 year) 02/13/2009 Pneumococcal Vaccine 50+ (1 of 1 - PCV) 02/13/2014 ZOSTER VACCINE (1 of 2) 02/13/2014 ANNUAL PHYSICAL 09/30/2017 HEPATITIS C SCREENING 09/30/2017 COVID-19 Vaccine (3 - 2023-2 5 season) 2024 10/30/2020, 10/02/2020 INFLUENZA VACCINE 05/08/2025 06/28/2023, , 06/20/2020, Additional history exists COLONOSCOPY 01/10/2034 01/11/2024, 11/03/2018 COLORECTAL CANCER SCREENING 01/10/2034 Procedures Procedure Name Priority Date/Time Associated Diagnosis Comments SCANNED - COLONOSCOPY 01/11/2024 from Last 3 Months or Most Recently Relevant to Health Maintenance Results * Colonoscopy, Scan (01/11/2024) Grey Reina MD CHART REVIEW TABS Lor l Result from Last 3 Months or Most Recently Relevant to Health Maintenance Insurance [facility] PPO Care Teams Oracle Database Administrator Relationship Specialty Start Date End Date Grey Alexis MD [address] [place] [address] [place] [id number] PCP - General Internal Medicine 10/27/18
--- OUTSIDE RECORDS SUMMARY | 2025-03-28 13:49 | XMS_ITS | Clinical Summary ---
Author Organization [facility] [place] [address] Care Team Providers Care Head Sulfide Operator Name Role Phone Unavailable Primary Care Provider [...]
--- NOTE | 2025-03-28 14:24 | A.OFFVIS_ITS ---
[facility] Disclaimer: The information contained in this section may have been updated after the patient was seen, as this information can be updated by other users. Medical History Low testosterone Hyperlipidemia Pulmonary embolism DVT (deep venous thrombosis) Hypertension Surgical History History of right knee joint replacement Family History Mother Cancer Social History Smoking Status: Former smoker smoking status stop date: 08/08/2007 alcohol intake: never current occupational status: other Travel in the last 8 weeks?: None Have you lived/traveled outside [place] in past 30 days?: No Contact w/someone who lives/traveled outside US past 30 days?: No Exposure to someone with infectious disease in past 14 days?: No Do you have a fever (greater than 100.4 F or 38 C)?: No Have you tested positive for COVID-19?: No Exposed to someone with COVID-19 in past 14 days?: No Do you have a sore throat?: No Do you have a cough?: No Do you have any weakness?: No Do you have any diarrhea?: No Are you experiencing any unusual bleeding?: No Do you have any muscle aches/pain?: No Do you have any abdominal pain?: No Are you experiencing loss of taste or smell?: No PM Subjective & Objective Subjective Subjective:: Patient is a pleasant 60-year-old male who presents today for worsening low back pain. He rates his pain a 9 out of 10. He denies any new trauma or injury. He does state this is that same pain that we had been previously treating him for and that he feels like his last injections have officially worn off. Patient does describe the pain as a constant aching, throbbing sensation that is worse with certain movements such as bending, twisting or lifting. He does state the pain interferes with his ability perform activities of daily living such as cooking and cleaning. Patient has continued conservative therapy including compounded cream with some improvement. His Liban has been reviewed and is appropriate. Review of Systems: General: No recent weight changes, no fever, no sleep disturbances Respiratory: No cough, no shortness of air, no recurring pulmonary infections Cardiovascular/peripheral vascular: No chest pain, no palpitations, no edema, no shortness of breath Gastrointestinal: No new onset incontinence, normal bowel movements reported Genitourinary: No new onset incontinence Musculoskeletal: Low back pain Psychiatric: [Normal mood/affect] Neurological: [Denies weakness in extremities], [denies balance issues] Pain at rest (0-10 scale): 9 Objective Objective:: Physical Exam: General: Alert and oriented x3, no acute distress, pleasant and cooperative Lungs: Respirations even and unlabored, symmetrical chest expansion Eyes: PERRL Musculoskeletal: Flexion and extension of lumbar [spine] somewhat guarded secondary to pain, [antalgic gait noted] positive Kemps test Neurological: Speech clear, no gross sensory deficit Has patient had previous pain injection?: No Conservative treatment options previously tried: Home exercise plan Length of treatment: Longer than 12 weeks Meds Home Medications and Allergies Home Medications ?Medication ?Instructions ?Recorded ?Confirmed ?Type aspirin 81 mg tablet,delayed 162 mg PO DAILY 05/18/22 02/28/25 History release lisinopril 10 See Rx Instructions .Route 0 10/03/23 02/28/25 Rx mg-hydrochlorothiazide 12.5 mg .COMPLEX #90 tabs tablet diclofenac sodium 50 mg See Rx Instructions .Route 0 10/26/24 02/28/25 Rx tablet,delayed release .COMPLEX #180 tabs pravastatin 40 mg tablet See Rx Instructions .Route 0 02/04/25 02/28/25 Rx .COMPLEX #90 tabs New Prescriptions to Start Prescriptions: Allergies Allergy/AdvReac Type Severity Reaction Status Date / Time No Known Allergies Allergy Verified 07/02/24 10:27 Assessment and Plan *Assessment and plan (1) Lumbar facet arthropathy: Status: Acute Category: Medical Code(s): M47.816 - Spondylosis without myelopathy or radiculopathy, lumbar region Plan Patient did have a successful first lumbar medial branch block and I did review with him regarding repeat diagnostic block. Risk and benefits were discussed with patient and he would like to proceed forward with this plan of care. Patient did have more than 80% relief with his first diagnostic block back in February and has lasted longer than 3 weeks. Patient did have improved function with decreased pain. Patient states during that time when the injection was working well his pain was a 1 or 2 out of 10. Patient did have limited range of motion of his lumbar spine during today's visit with a positive Kemps test. Patient was counseled if he does get significant improvement with this second di agnostic block we will proceed forward with the lumbar RFA at a later date. Patient acknowledges understanding agrees with plan of care. Patient has continued at home stretching and exercise for longer than 12 weeks with no additional changes. Patient has been previously evaluated by neurosurgery and was not a surgical candidate at this time. Patient does have a history of previous lumbar fusion. Patient has failed oral medications, heat and ice, topicals. We will schedule him for the second lumbar medial branch block bilaterally L4-L5 and L5-S1 under fluoroscopy. Patient has been instructed to contact the clinic with any concerns before the next appointment. Dr. Hernandez has reviewed this note and agrees with this plan of care. This note was dictated using voice recognition software and make contain errors or omissions. All injections are used with Lidocaine, Bupivacaine and dexamethasone unless diagnostic in which no steroids are used. Occasionally urine drug screen is needed to verify patient's compliance with our office pain contract. This is ordered based off specific treatments related to chronic pain with the potential to abuse certain medications.
[2025-03-28 14:56] VITALS: BP 122/74; PULSE 101; RESP 16; O2SAT 96; BMI 37.3
== END 2025-03-28 23:59 | disposition home or self-care (01) ==
LOC: SC.PAIN 13:32
PROVIDERS: PCP Family Medicine; Visit Provider Nurse Practitioner Family
DX: M47.816 Spondylosis without myelopathy or radiculopathy, lumbar region (principal)
CPT/HCPCS: 99212; G0463

== ENCOUNTER 2025-05-21 09:19 | Day surgery (SDC) | payer BC, SELFPAY ==
[2025-05-21 09:15] VITALS: BP 121/79; PULSE 78; RESP 18; O2SAT 98; BMI 37.3
[2025-05-21 09:30] VITALS: BP 142/95; PULSE 90; PULSE 92; RESP 18; O2SAT 96; O2SAT 97
[2025-05-21] MEDS: LIDOCAINE 1% 5ML PF VIAL 5 ML (09:32)
[2025-05-21 09:38] VITALS: BP 123/78; PULSE 76; RESP 16; O2SAT 98
--- NOTE | 2025-05-21 09:41 | EXP.PAIN.PRO ---
Procedure Date: 05/21/25 Time: 09:40 Anesthesiologist:: Arias Prado CRNA Complications:: None Pre-procedure Diagnosis:: Degenerative disc lumbar spine multilevels. Lumbar radiculopathy. Lumbar spondylosis. Multilevel lumbar facet arthropathy. Post-procedure Diagnosis:: Same. Indications for Procedure:: Patient is a very pleasant 60-year-old male who comes our clinic today for round 2 of lumbar medial branch blocks/facet injection at the bilateral L4-5 and L5-S1 level. Patient describes 2-1/2 weeks of relief with his injections at the same level. He reports much better lumbar flexion, extension, left and right rotation for couple of weeks. He rates his pain today 6/10. Procedure Details:: Informed consent was obtained and the risk and benefits of the procedure was explained to the patient. Patient was taken to the procedure room where noninvasive monitors were placed, including noninvasive blood pressure cuff as well as pulse oximeter. The area over the lumbar spine was cleansed using chlorhexidine as a cleansing solution. I anesthetized the skin and subcutaneous tissues with 1% Lidocaine. I placed 22-gauge spinal needles into the facet joint/ medial branches of L4-L5, and L5-S1 bilaterally. Needle placement was confirmed with fluoroscopy. After confirmation of needle placement, each site was injected with 1 mL of 1% lidocaine and 0.25 % Marcaine 1 mL. Patient tolerated the procedure without difficulty. There were no complications. Plan and Disposition:: Patient was discharged without incident.
== END 2025-05-21 09:38 | disposition home or self-care (01) ==
PROVIDERS: PCP Family Medicine; Visit Provider Nurse Anesthetist, Certified Registered
DX: M51.16 Intervertebral disc disorders with radiculopathy, lumbar region (principal); M47.26 Other spondylosis with radiculopathy, lumbar region; E78.5 Hyperlipidemia, unspecified; I10 Essential (primary) hypertension; Z86.711 Personal history of pulmonary embolism; Z86.718 Personal history of other venous thrombosis and embolism; Z87.891 Personal history of nicotine dependence; Z79.899 Other long term (current) drug therapy
CPT/HCPCS: 64493; 64494; J2003

== ENCOUNTER 2025-07-09 09:22 | Outpatient (CLI) | payer BC, SELFPAY ==
[2025-07-09 17:23] LABS: Hematocrit 48.4 % (42.0-52.0); Hemoglobin 15.6 g/dL (14.1-18.0); Immature Granulocytes % 0.2 %; Mean Corpuscular HGB Conc 32.2 g/dL (31.8-35.4); Mean Corpuscular Hemoglobin 29.8 pg (27.0-31.2); Mean Corpuscular Volume 92.5 fl (80-94); Nucleated Red Blood Cells % 0 %; Platelet Count 133 K/mm3 (142-424); Red Blood Count 5.23 M/mm3 (4.60-6.20); Red Cell Distribution Width-SD 43.6 fL; White Blood Count 6.4 K/mm3 (4.8-10.8)
[2025-07-09 17:42] LABS: Alanine Aminotransferase 36 U/L (12-78); Albumin Level 4.4 g/dl (3.5-5.0); Albumin/Globulin Ratio 1.5 (1.1-1.8); Alkaline Phosphatase 78 U/L (38-126); Anion Gap 8.5 mEq/L (5-15); Aspartate Amino Transferase 31 U/L (17-59); Bilirubin,Total 0.7 mg/dl (0.2-1.3); Blood Urea Nitrogen 20 mg/dl (9-20); Calcium 9.5 mg/dl (8.4-10.2); Carbon Dioxide 24 mmol/L (22.0-30.0); Chloride 106 mmol/L (98-107); Cholesterol 215 mg/dl (140-200); Creatinine,Serum 1.00 mg/dl (0.66-1.25); Estimated Glomerular Filt Rate 76 ml/min (>60); GFR (African American) 92 ML/MIN (>60); Globulin 3.0 g/dL (1.3-3.2); Glucose 101 mg/dl (74-100); HDL Cholesterol 41 mg/dl (40-60); Potassium 4.5 mmoL/L (3.5-5.1); Sodium 134 mmol/L (136-145); Total Protein,Serum 7.4 g/dl (6.3-8.2); Triglycerides 194 mg/dl (30-150)
[2025-07-09 18:13] LABS: Thyroid Stimulating Hormone 2.02 uIU/mL (0.465-4.68)
[2025-07-09 18:30] LABS: Hepatitis C Ab Qual. W/ RFX NEGATIVE (Negative)
--- OUTSIDE RECORDS SUMMARY | 2025-07-10 09:31 | XMS_ITS | Clinical Summary ---
Author Organization [facility] [place] [address] Care Team Providers Care Online Marketing Specialist Name Role Phone Unavailable Primary Care Provider [...] Zoster (1 of 2) 02/13/2014 COVID-19 Vaccine (2024-2 6 season) 2025 Influenza Vaccine (#1) 2025 Hepatitis B Vaccine Aged Out No longe r eligible based on patient's age to complete this topic Meningococcal B Vaccine Aged Out No l onger eligible based on patient's age to complete this topic
--- OUTSIDE RECORDS SUMMARY | 2025-07-10 09:31 | XMS_ITS ---
Author Organization Unknown ENCOUNTERS Encounter Performer Location Date Diagnosis Diagnosis Status Emergency [place] [id number] [facility] [address] [place] [address] [id number] [place] *Note: Encounters from your own facility or health system may be excluded. Allergies, Adverse Reactions, Alerts Allergen Type Severity Identification Date Medications Name Date Quantity Days Supplied GPI Number
--- OUTSIDE RECORDS SUMMARY | 2025-07-10 09:31 | XMS_ITS | Clinical Summary ---
Author Organization [facility] Address [address] [place] [address] Care Team Providers Care Butt Trimmer Name Role Phone Grey Alexis MD Primary Care Provider [phone] Allergies No known active allergies Medications pravastatin [...] Due Date Last Done Comments TDAP/TD VACCINES (1 - Tdap) 10/09/1996 10/08/1996 COLOGUARD 02/13/2009 COLON CANCER SCREENING 5 YEA R SIGMOIDOSCOPY 02/13/2009 CT COLONOGRAPHY 02/13/2009 FECAL OCCULT BLOOD TEST 02/13/2009 FIT Testing (1 year) 02/13/2009 Pneumococcal Vaccine 50+ (1 of 1 - PCV) 02/13/2014 ZOSTER VACCINE (1 of 2) 02/13/2014 ANNUAL PHYSICAL 09/30/2017 HEPATITIS C SCREENING 09/30/2017 INFLUENZA VACCINE 03/08/2025 06/28/2023, , 06/20/2020, Additional history exists COLONOSCOPY 01/10/2034 01/11/2024, 11/03/2018 COLORECTAL CANCER SCREENING 01/10/2034 Procedures Procedure Name Priority Date/Time Associated Diagnosis Comments SCANNED - COLONOSCOPY 01/11/2024 from Last 3 Months or Most Recently Relevant to Health Maintenance Results * Colonoscopy, Scan (01/11/2024) us Grey Reina MD CHART REVIEW TARANS [place] ke[place] Result from Last 3 Months or Most Recently Relevant to Health Maintenance Insurance PPO Care Teams Butt Trimmer Relationship Specialty Start Date End Date Grey Alexis MD [address] [place] [address] PCP - General Internal Medicine 10/27/18
[2025-07-11 08:21] LABS: Hepatitis B Surface Antigen Negative (Negative)
== END 2025-07-09 23:59 | disposition home or self-care (01) ==
LOC: LAB.DROPOF 07-10 09:29
PROVIDERS: PCP Family Medicine; Visit Provider Family Medicine
DX: E78.5 Hyperlipidemia, unspecified (principal); Z11.59 Encounter for screening for other viral diseases; Z11.4 Encounter for screening for human immunodeficiency virus [HIV]; I10 Essential (primary) hypertension; Z12.5 Encounter for screening for malignant neoplasm of prostate
CPT/HCPCS: 80053; 80061; 84443; 85025; 86803; 87340; 87389; G0103

== ENCOUNTER 2025-07-16 13:36 | Day surgery (SDC) | payer BC, SELFPAY ==
[2025-07-16 13:43] VITALS: BP 143/78; PULSE 77; RESP 16; O2SAT 98; BMI 38.3
[2025-07-16] MEDS: BUPIVACAINE 0.25% 10ML INJ 25 MG IJ (13:49)
[2025-07-16] MEDS: LIDOCAINE 1% 5ML PF VIAL 5 ML (13:49)
[2025-07-16] MEDS: DEXAMETHASONE 10MG/ML 1ML VIAL 10 MG (13:49)
[2025-07-16 13:56] VITALS: BP 143/78; PULSE 77; RESP 18; O2SAT 98
[2025-07-16 13:59] VITALS: BP 143/78; PULSE 77; RESP 18; O2SAT 98
--- NOTE | 2025-07-16 14:04 | P.PCN_ITS ---
Procedure Date: 07/16/25 Time: 13:55 Anesthesiologist:: Arias Prado CRNA Complications:: None Pre-procedure Diagnosis:: Degenerative disc lumbar spine multilevels. Lumbar radiculopathy. Lumbar spondylosis. Multilevel lumbar facet arthropathy. Post-procedure Diagnosis:: Same. Indications for Procedure:: Patient is a very pleasant 60-year-old male who comes to our clinic today for bilateral lumbar L4-5, L5-S1 radiofrequency ablation. Patient describes low lumbar back pain as constant, dull, aching. He reports having difficulty with lumbar flexion, extension, left and right rotation. Difficulty with standing. Difficulty with sitting. Difficulty with ambulation due to low back pain. He rates his pain 7/10. Procedure Details:: Procedure Details: Lumbar RFA Informed consent was obtained and the risk and benefits of the procedure was explained to the patient. Patient was placed prone on the procedure table. The patient was prepped and draped in sterile fashion. C-arm fluoroscopy was used to view the lumbar spine. The skin and subcutaneous tissues were anesthetized using lidocaine. I placed 20-gauge RF needles into the facet joints of L3-L4, L4-L5 and L5-S1 bilaterally. We underwent sensory stimulation. There is good sensory stimulation at 0.8 V. We underwent motor stimulation. There is no motor stimulation at 2 V. We then anesthetized these levels with lidocaine and Depo- Medrol. I used a total of 10 mg of dexamethasone for all 3 levels. I then burned all 3 levels of L3-L4, L4-5 and L5-S1 bilaterally for 4 minutes at 80 ?C. Patient tolerated the procedure well with no complication. Plan and Disposition:: We will follow-up with this patient in 2 weeks. We will reevaluate her symptoms at that time. Plan and Disposition:: Patient was discharged without incident.
[2025-07-16 14:08] VITALS: BP 152/87; PULSE 83; RESP 16; O2SAT 96
== END 2025-07-16 14:08 | disposition home or self-care (01) ==
PROVIDERS: PCP Family Medicine; Visit Provider Nurse Anesthetist, Certified Registered
DX: M47.26 Other spondylosis with radiculopathy, lumbar region (principal); E78.5 Hyperlipidemia, unspecified; I10 Essential (primary) hypertension; Z86.711 Personal history of pulmonary embolism; Z86.718 Personal history of other venous thrombosis and embolism; Z87.891 Personal history of nicotine dependence; Z96.651 Presence of right artificial knee joint; Z79.899 Other long term (current) drug therapy; Z79.82 Long term (current) use of aspirin
CPT/HCPCS: 64635; 64636; J0665; J1100; J2003

== ENCOUNTER 2025-07-22 10:06 | Outpatient (CLI) | payer BC, SELFPAY ==
--- NOTE | 2025-07-22 10:30 | CT_ITS ---
FINAL REPORT TECHNIQUE: Axial CT images of the chest were obtained without contrast. Low-dose protocol was utilized. This study was performed with techniques to keep radiation doses as low as reasonably achievable (ALARA). Individualized dose reduction techniques using automated exposure control or adjustment of mA and/or kV according to the patient's size were employed. CLINICAL HISTORY: lung cancer screening former smoker quit 16 year ago 2ppd x 30 years COMPARISON: None FINDINGS: CT CHEST WITHOUT, LOW DOSE SCREENING CT Di Vol: 2.90 mGy DLP: 114.64 mGy*cm Calcified right hilar and subcarinal lymph nodes are noted. The heart size is normal. There is no pleural or pericardial effusion. The lung windows show no suspicious mass or nodule. Calcified granulomas are present in the left upper lobe and right lung base. Limited images of the upper abdomen demonstrate no acute findings. IMPRESSION: No suspicious mass or nodules. LR Category 1: 12 month follow-up low-dose chest CT is recommended per Fleischner criteria. Reviewed, Interpreted and Dictated by Henrry Martínez MD Transcribed by Blank Black Authenticated and [facility]
== END 2025-07-22 23:59 ==
LOC: RAD 10:07
PROVIDERS: PCP Family Medicine; Visit Provider Family Medicine
DX: Z12.2 Encounter for screening for malignant neoplasm of respiratory organs (principal); Z87.891 Personal history of nicotine dependence; J98.4 Other disorders of lung; I89.8 Other specified noninfective disorders of lymphatic vessels and lymph nodes
CPT/HCPCS: 71271